=== PATIENT | male | born 1995 | race African-American/Black ===

== ENCOUNTER 2018-12-07 10:43 | Emergency (ER) | payer MEDICAID ==
[~2018-12-07] VITALS: Ht 185.4 cm; Wt 80.3 kg
--- OUTSIDE RECORDS SUMMARY | 2018-12-07 11:07 | XMS REPORT | Continuity of Care Document ---
Demographics Preferred Language Unknown Marital Status Unknown Sabianist Affiliation Unknown Race Unknown Ethnic Group Unknown Author Author Former[facility] [place] Address Unknown Phone Unavailable Allergies There is no data. Medications There is no data. Problems There is no data. Procedures There is no data. Results There is no data. Encounters ACCT No. Visit Date/Time Discharge Status Pt. Type Provider Facility Loc./Unit Complaint [id number] 01/30/2013 14:40:44 RECURRING
[2018-12-07] MEDS ORDERED: CARV3.122 PO (11:58)
[2018-12-07] MEDS ORDERED: KETOROLAC 30 MG/ML VIAL IVP ONE (12:45)
[2018-12-07 13:05] LABS: BASOPHILS # (AUTO) 0.1 10^3/uL (0.0-0.1); BASOPHILS % (AUTO) 1 % (0-10); EOSINOPHILS # (AUTO) 0.2 10^3/uL (0.0-0.3); EOSINOPHILS % (AUTO) 3 % (0-10); HEMATOCRIT 50 % (40-54); HEMOGLOBIN 17.2 G/DL (13.3-17.7); LYMPHOCYTES # (AUTO) 1.9 X 10^3 (1.0-4.0); LYMPHOCYTES % (AUTO) 39 % (12-44); MEAN CORPUSCULAR HEMOGLOBIN 28 PG (25-34); MEAN CORPUSCULAR HGB CONC 34 G/DL (32-36); MEAN CORPUSCULAR VOLUME 82 FL (80-99); MEAN PLATELET VOLUME 10.3 FL (7.4-10.4); MONOCYTES # (AUTO) 0.8 X 10^3 (0.0-1.0); MONOCYTES % (AUTO) 16 % (0-12); NEUTROPHILS % (AUTO) 41 % (42-75); PLATELET COUNT 257 10^3/uL (130-400); RED BLOOD COUNT 6.12 10^6/uL (4.35-5.85); RED CELL DISTRIBUTION WIDTH 13.3 % (10.0-14.5); WHITE BLOOD COUNT 4.9 10^3/uL (4.3-11.0)
[2018-12-07 13:30] LABS: ERYTHROCYTE SEDIMENTATION RATE 1 MM/HR (0-15)
[2018-12-07 13:31] LABS: ALANINE AMINOTRANSFERASE 13 U/L (0-55); ALBUMIN 4.8 GM/DL (3.2-4.5); ALKALINE PHOSPHATASE 88 U/L (40-136); BUN/CREATININE RATIO 11; CALCIUM 10.1 MG/DL (8.5-10.1); CARBON DIOXIDE 26 MMOL/L (21-32); CHLORIDE 101 MMOL/L (98-107); CREATININE SERUM 1.25 MG/DL (0.60-1.30); GFR ESTIMATED > 60; GLUCOSE 84 MG/DL (70-105); POTASSIUM 3.9 MMOL/L (3.6-5.0); SODIUM 139 MMOL/L (135-145)
--- NOTE | 2018-12-07 13:33 | Diagnostic Imaging Report ---
Indication: Left shoulder pain AP, oblique and transscapular views of the left shoulder are obtained. FINDINGS: No acute fracture or dislocation is identified. No abnormal lytic or sclerotic focus is seen, and there is no radiopaque foreign body. IMPRESSION: No acute abnormality. Dictated by: Dictated on workstation # [id number]
--- NOTE | 2018-12-07 13:41 | Diagnostic Imaging Report ---
INDICATION: Sternal pain and palpitation. TECHNIQUE: PA and lateral views of the chest were obtained. COMPARISON: No previous study is available for comparison at this time. FINDINGS: The heart size and pulmonary vasculature are within normal limits, and the lungs are clear bilaterally. Monitoring leads overlie the chest. IMPRESSION: Unremarkable chest. Dictated by: Dictated on workstation # [id number]
--- NOTE | 2018-12-07 13:57 | ED Chest Pain ---
General Chief Complaint: Chest Pain Stated Complaint: PALPITATIONS Nursing Triage Note: PT. STATES HE IS NOW HAVING STERNAL PAIN. WHEN HE FIRST PRESENTED TO ER, ONLY C/O WAS PALPITATIONS, INCREASED HR. PT. HAS HALTER MONITOR THAT WAS PLACED THIS AM. PT. WAS DENTON TO ER BY STAFF THAT HAD PLACED THE HALTER MONITOR. PT. STATES HE WAS IN [place] ER WITH SAME C/O BUT NO TREATMENT WAS DONE. Nursing Sepsis Screen: No Definite Risk Source: patient, family Exam Limitations: no limitations History of Present Illness Date Seen by Provider: Dec 07, 2018 Time Seen by Provider: 13:52 Initial Comments This 22-year-old white male presents with a history of chest pain and palpitations. The patient was here for a Holter monitor. He began to complain of chest pain and palpitations precipitating his presentation in the emergency department. The patient has no known heart disease. He's had no associated fever, chill, shortness of breath, diaphoresis, nausea or vomiting. The patient has been able to play competitive basketball without any episodes of chest discomfort in the past. There is no significant history of heart disease in the family. Patient denies nicotine, significant alcohol, or recreational drugs. Allergies and Home Medications Allergies Coded Allergies: No Known Drug Allergies (Unverified , 12/07/18) Home Medications Carvedilol 3.125 Mg Tablet, 3.125 MG PO BID, (Reported) Patient Home Medication List Home Medication List Reviewed: Yes Review of Systems Review of Systems Constitutional: No chills, No fever, No weakness EENTM: No Blurred Vision, No Ear Pain Respiratory: Denies Cough, Denies Shortness of Air Cardiovascular: See HPI, Chest Pain, Palpitations Gastrointestinal: Denies Abdomen Distended, Denies Diarrhea, Denies Nausea, Denies Vomiting Genitourinary: Denies Frequency, Denies Pain Musculoskeletal: No back pain; joint pain (patient is complaining of left- sided chest pain associated with pain in the left shoulder. Movement of the left shoulder or); No joint swelling Skin: No change in color (patient is complaining of left-sided chest pain associated with pain in the left shoulder. Movement of the left shoulder or pressure to the anterior chest wall and left reproduces the patient's discomfort.), No rash Psychiatric/Neurological: No Symptoms Reported Endocrine: No Symptoms Reported Hematologic/Lymphatic: No Symptoms Reported Past Hvlldtl-Wjawkb-Xfbkxs Hx Past Med/Social Hx: Reviewed Nursing Past Med/Soc Hx Patient Social History Alcohol Use: Denies Use Recreational Drug Use: No Smoking Status: Former Smoker Type Used: Cigarettes Former Smoker, Quit: Nov 20, 2015 Recent Foreign Travel: No Contact w/Someone Who Travel: No Recent Infectious Disease Expo: No Physical Abuse: No Sexual Abuse: No Past Medical History Surgeries: No Respiratory: No Cardiac: Yes (HEART MONITOR PLACED THIS AM) Hypertension Neurological: No Genitourinary: No Gastrointestinal: No Musculoskeletal: No Endocrine: No HEENT: No Cancer: No Psychosocial: No Integumentary: No Physical Exam Vital Signs Vital Signs - First Documented 12/07/18 11:47 Temp 98.1 B/P (MAP) 148/106 (120) O2 Delivery Room Air Capillary Refill : Less Than 3 Seconds Height, Weight, BMI Height: 6'1.00" Weight: 177lbs. oz. 80.795709if; BMI Method:Stated General Appearance: No Apparent Distress, WD/WN HEENT: TMs Normal, Normal ENT Inspection Neck: Full Range of Motion, Normal Inspection, Supple Respiratory: Lungs Clear Cardiovascular: Regular Rate, Rhythm Gastrointestinal: Normal Bowel Sounds, Non Tender, Soft Extremity: Other (there is tenderness to palpation over the left shoulder over the insertion of the rotator cuff.) Neurologic/Psychiatric: Alert, Oriented x3, No Motor/Sensory Deficits Skin: Normal Color, Warm/Dry Progress/Results/Core Measures Results/Orders Lab Results Laboratory Tests Test 12/07/18 12:03 Range/Units White Blood Count 4.9 4.3-11.0 10^3/uL Red Blood Count 6.12 H 4.35-5.85 10^6/uL Hemoglobin 17.2 13.3-17.7 G/DL Hematocrit 50 40-54 % Mean Corpuscular Volume 82 80-99 FL Mean Corpuscular Hemoglobin 28 25-34 PG Mean Corpuscular Hemoglobin Concent 34 32-36 G/DL Red Cell Distribution Width 13.3 10.0-14.5 % Platelet Count 257 130-400 10^3/uL Mean Platelet Volume 10.3 7.4-10.4 FL Neutrophils (%) (Auto) 41 L 42-75 % Lymphocytes (%) (Auto) 39 12-44 % Monocytes (%) (Auto) 16 H 0-12 % Eosinophils (%) (Auto) 3 0-10 % Basophils (%) (Auto) 1 0-10 % Neutrophils # (Auto) 2.0 1.8-7.8 X 10^3 Lymphocytes # (Auto) 1.9 1.0-4.0 X 10^3 Monocytes # (Auto) 0.8 0.0-1.0 X 10^3 Eosinophils # (Auto) 0.2 0.0-0.3 10^3/uL Basophils # (Auto) 0.1 0.0-0.1 10^3/uL Erythrocyte Sedimentation Rate 1 0-15 MM/HR Sodium Level 139 135-145 MMOL/L Potassium Level 3.9 3.6-5.0 MMOL/L Chloride Level 101 98-107 MMOL/L Carbon Dioxide Level 26 21-32 MMOL/L Anion Gap 12 5-14 MMOL/L Blood Urea Nitrogen 14 7-18 MG/DL Creatinine 1.25 0.60-1.30 MG/DL Estimat Glomerular Filtration Rate > 60 BUN/Creatinine Ratio 11 Glucose Level 84 70-105 MG/DL Calcium Level 10.1 8.5-10.1 MG/DL Corrected Calcium 8.5-10.1 MG/DL Total Bilirubin 1.0 0.1-1.0 MG/DL Aspartate Amino Transf (AST/SGOT) 19 5-34 U/L Alanine Aminotransferase (ALT/SGPT) 13 0-55 U/L Alkaline Phosphatase 88 40-136 U/L Troponin I < 0.028 <0.028 NG/ML Total Protein 8.0 6.4-8.2 GM/DL Albumin 4.8 H 3.2-4.5 GM/DL My Orders Orders - LUNA NOBLE MD Chest Pa/Lat (2 View) (12/07/18 12:44) Erythrocyte Sedimentation Rate (12/07/18 12:44) Troponin I (12/07/18 12:44) Cbc With Automated Diff (12/07/18 12:44) Comprehensive Metabolic Panel (12/07/18 12:44) Ketorolac Injection (Toradol Injection) (12/07/18 12:45) Ekg Tracing (12/07/18 12:49) Shoulder, Left, 3 Views (12/07/18 12:44) Medications Given in ED Current Medications Medications Dose Ordered Sig/Mayra Route Start Time Stop Time Status Last Admin Dose Admin Ketorolac Tromethamine 30 mg ONCE ONCE IVP 12/07/18 12:45 12/07/18 12:47 DC 12/07/18 13:03 30 MG Vital Signs/I&O 12/07/18 11:47 Temp 98.1 B/P (MAP) 148/106 (120) O2 Delivery Room Air Blood Pressure Mean: 120 Progress Progress Note : Time: 13:56 Progress Note Patient's laboratory and radiographic evaluation were unremarkable. After discussion with the patient 30 mg Toradol IV was given on a trial basis to see if we can relieve his chest pain. Patient received a significant amount of pain relief with the IV Toradol. IM and reassured the patient that I thought his chest pain was likely to be noncardiac in origin. I recommend close follow-up after submission of his Holter monitor. I gave the patient small amount of oral Toradol should he have any continued chest pain. Departure Impression Primary Impression: Chest pain Qualified Codes: R07.82 - Intercostal pain Disposition: 01 HOME, SELF-CARE Condition: Improved Departure-Patient Inst. Decision time for Depature: 13:58 Referrals: BANG GILL MD (PCP/Family) Primary Care Physician Patient Instructions: Chest Pain That Is Not Caused by the Heart (DC) Add. Discharge Instructions: Toradol for pain if needed. Close follow-up after your Holter monitor. Return if any problems or questions. All discharge instructions reviewed with patient and/or family. Voiced understanding. LUNA NOBLE MD Dec 07, 2018 13:57
[2018-12-07 14:21] VITALS: BP 131/84
== END 2018-12-07 14:18 | disposition home or self-care (01) ==
LOC: EDUNIT# 10:43 → ER 10:44
DX: R07.9 Chest pain, unspecified (principal); I10 Essential (primary) hypertension; Z87.891 Personal history of nicotine dependence
CPT/HCPCS: 36415; 71046; 73030; 80053; 84484; 85025; 85652; 93005

== ENCOUNTER → 2018-12-07 | Outpatient (CLI) | payer MEDICAID ==
[~2018-12-07] MED LIST: CARV3.122 PO
== END ==
LOC: CARD 10:22
PROVIDERS: ATTEND Family Medicine
DX: R00.2 Palpitations (principal); R07.9 Chest pain, unspecified
CPT/HCPCS: 93225; 93226

== ENCOUNTER 2018-12-13 18:51 | Emergency (ER) | payer MEDICAID | END 2018-12-13 20:40 | disposition home or self-care (01) | LOC: ER 18:51 ==

== ENCOUNTER 2018-12-21 21:15 | Emergency (ER) | payer MEDICAID ==
[~2018-12-21] VITALS: Ht 182.9 cm; Wt 77.6 kg
[~2018-12-21 21:15] MED LIST changes: +METH-313 PO; +NAPR-1071 PO
--- OUTSIDE RECORDS SUMMARY | 2018-12-21 21:20 | XMS REPORT | Continuity of Care Document ---
Demographics Preferred Language Unknown Marital Status Unknown Jew Affiliation Unknown Race Unknown Ethnic Group Unknown Author Author [facility] Address Unknown Phone Unavailable Allergies Active Description Code Type Severity Reaction Onset Reported/Identified Relationship to Patient Clinical Status Yes NO KNOWN DRUG ALLERGIES UNKNOWN NO KNOWN DRUG ALLERG Yes No Known Drug Allergies [id number] Drug Allergy Unknown N/A 12/07/2018 Medications Medication Packaging Start Date Stop Date Route Dosage Sig ORPHENADRINE INJ 60 MG/2CC (NORFLEX) MG 2018 2018 ONCE&1557 KETOROLAC VIAL INJ 60 MG/2CC (TORADOL VIAL) MG 2018 2018 ONCE&1557 ASPIRIN 81MG CHEWABLE TAB 81 MG (BABY ASPIRIN) MG 2018 2018 ONCE&1800 Problems Date Dx Coded Attending Type Code Diagnosis Diagnosed By 12/10/2018 AIDE GROVER, LUNA Kincaid Ot I10 ESSENTIAL (PRIMARY) HYPERTENSION 12/10/2018 LUNA NOBLE MD Ot R07.9 CHEST PAIN, UNSPECIFIED 12/10/2018 LUNA NOBLE MD Ot Z87.891 PERSONAL HISTORY OF NICOTINE DEPENDENCE 12/10/2018 Ot R00.2 PALPITATIONS 12/10/2018 Ot R07.9 CHEST PAIN, UNSPECIFIED 2018 Brokob, Amber W 461.9 ACUTE SINUSITIS, UNSPECIFIED 2018 Brokob, Amber W 785.1 PALPITATIONS 2018 Brokob, Amber W 786.5 CHEST PAIN 2018 Brokob, Amber W 794.31 NONSPECIFIC ABNORMAL ELECTROCARDIOGRAM [ECG] [EKG] 2018 Brokob, Amber W 848.8 OTHER SPECIFIED SITES OF SPRAINS AND STRAINS 2018 Brokob, Amber W J01.90 ACUTE SINUSITIS, UNSPECIFIED 2018 Brokob, Amber W R00.2 PALPITATIONS 2018 Brokob, Amber W R07.89 OTHER CHEST PAIN 2018 Brokob, Amber W R94.31 ABNORMAL ELECTROCARDIOGRAM [ECG] [EKG] 2018 Amber Fernandez W S29.012A STRAIN OF MUSCLE AND TENDON OF BACK WALL OF THORAX, INIT 12/17/2018 LEIGHTON THOMAS APRN Ot I10 ESSENTIAL (PRIMARY) HYPERTENSION 12/17/2018 LEIGHTON THOMAS APRN Ot R07.89 OTHER CHEST PAIN 12/17/2018 LEIGHTON THOMAS APRN Ot R94.31 ABNORMAL ELECTROCARDIOGRAM [ECG] [EKG] 12/17/2018 LEIGHTON THOMAS APRN Ot Z87.891 PERSONAL HISTORY OF NICOTINE DEPENDENCE 12/19/2018 Ot R00.2 PALPITATIONS 12/19/2018 Ot R07.9 CHEST PAIN, UNSPECIFIED Procedures There is no data. Results Test Result Range Complete blood count (CBC) with automated white blood cell (WBC) differential - 12/07/18 12:03 Blood leukocytes automated count (number/volume) 4.9 10*3/uL 4.3-11.0 Blood erythrocytes automated count (number/volume) 6.12 10*6/uL 4.35-5.85 Venous blood hemoglobin measurement (mass/volume) 17.2 g/dL 13.3-17.7 Blood hematocrit (volume fraction) 50 % 40-54 Automated erythrocyte mean corpuscular volume 82 [foz_us] 80-99 Automated erythrocyte mean corpuscular hemoglobin (mass per erythrocyte) 28 pg 25-34 Automated erythrocyte mean corpuscular hemoglobin concentration measurement ( mass/volume) 34 g/dL 32-36 Automated erythrocyte distribution width ratio 13.3 % 10.0-14.5 Automated blood platelet count (count/volume) 257 10*3/uL 130-400 Automated blood platelet mean volume measurement 10.3 [foz_us] 7.4-10.4 Automated blood neutrophils/100 leukocytes 41 % 42-75 Automated blood lymphocytes/100 leukocytes 39 % 12-44 Blood monocytes/100 leukocytes 16 % 0-12 Automated blood eosinophils/100 leukocytes 3 % 0-10 Automated blood basophils/100 leukocytes 1 % 0-10 Blood neutrophils automated count (number/volume) 2.0 10*3 1.8-7.8 Blood lymphocytes automated count (number/volume) 1.9 10*3 1.0-4.0 Blood monocytes automated count (number/volume) 0.8 10*3 0.0-1.0 Automated eosinophil count 0.2 10*3/uL 0.0-0.3 Automated blood basophil count (count/volume) 0.1 10*3/uL 0.0-0.1 Erythrocyte sedimentation rate by westergren method - 12/07/18 12:03 Erythrocyte sedimentation rate by westergren method 1 mm 0-15 Comprehensive metabolic panel - 12/07/18 12:03 Serum or plasma sodium measurement (moles/volume) 139 mmol/L 135-145 Serum or plasma potassium measurement (moles/volume) 3.9 mmol/L 3.6-5.0 Serum or plasma chloride measurement (moles/volume) 101 mmol/L 98-107 Carbon dioxide 26 mmol/L 21-32 Serum or plasma anion gap determination (moles/volume) 12 mmol/L 5-14 Serum or plasma urea nitrogen measurement (mass/volume) 14 mg/dL 7-18 Serum or plasma creatinine measurement (mass/volume) 1.25 mg/dL 0.60-1.30 Serum or plasma urea nitrogen/creatinine mass ratio 11 NRG Serum or plasma creatinine measurement with calculation of estimated glomerular filtration rate > NRG Serum or plasma glucose measurement (mass/volume) 84 mg/dL 70-105 Serum or plasma calcium measurement (mass/volume) 10.1 mg/dL 8.5-10.1 Serum or plasma total bilirubin measurement (mass/volume) 1.0 mg/dL 0.1-1.0 Serum or plasma alkaline phosphatase measurement (enzymatic activity/volume) 88 U/L 40-136 Serum or plasma aspartate aminotransferase measurement (enzymatic activity/ volume) 19 U/L 5-34 Serum or plasma alanine aminotransferase measurement (enzymatic activity/volume ) 13 U/L 0-55 Serum or plasma protein measurement (mass/volume) 8.0 g/dL 6.4-8.2 Serum or plasma albumin measurement (mass/volume) 4.8 g/dL 3.2-4.5 Serum or plasma troponin i.cardiac measurement (mass/volume) - 12/07/18 12:03 Serum or plasma troponin i.cardiac measurement (mass/volume) < ng/ mL <0.028 Thyroid Stimulating Hormone - 12/13/18 16:35 TSH 0.92 mIU/mL 0.32-5.00 Serum or plasma troponin i.cardiac measurement (mass/volume) - 12/13/18 19:45 Serum or plasma troponin i.cardiac measurement (mass/volume) < ng/ mL <0.028 Fibrin D-dimer FEU measurement in platelet poor plasma (mass/volume) - 19:45 Fibrin D-dimer FEU measurement in platelet poor plasma (mass/volume) 0.22 ug/mL 0.00-0.49 Encounters ACCT No. Visit Date/Time Discharge Status Pt. Type Provider Facility Loc./Unit Complaint [id number] 01/30/2013 14:40:44 RECURRING [id number] 2018 15:35:00 2018 18:25:00 DIS Outpatient Charmaineanna Amber [id number] 2018 15:57:35 Document Registration [id number] 2018 18:51:00 2018 20:40:00 DIS Outpatient LEIGHTON THOMAS APRN [facility] ER CP [id number] 12/07/2018 10:44:00 12/07/2018 14:18:00 DIS Outpatient AIDE GROVER, LUNA Kincaid [facility] ER PALPITATIONS [id number] 12/21/2018 21:16:00 ACT Emergency ISAAC DO, NEHAL K [facility] ER HEART RACING/L SIDE PAIN [id number] 12/19/2018 10:45:00 PEN Preadesperanza SETHI MD FACC, RAMAN DHILLON CCDS [facility] RAD CHEST DISCOMFORT [id number] 12/07/2018 11:56:00 Document Registration [id number] 12/07/2018 11:56:00 Document Registration
--- NOTE | 2018-12-21 21:39 | NUR ---
NOTIFIED KEYUR SEGURA THAT PT ST HEART IS RACING FASTER.
[2018-12-21 22:15] VITALS: BP 150/99
[2018-12-21] MEDS ORDERED: ASPIRIN 81 MG CHEW (CHILDREN'S ASA) PO ONE (22:30)
[2018-12-21 22:33] LABS: BASOPHILS # (AUTO) 0.1 10^3/uL (0.0-0.1); BASOPHILS % (AUTO) 2 % (0-10); EOSINOPHILS # (AUTO) 0.2 10^3/uL (0.0-0.3); EOSINOPHILS % (AUTO) 4 % (0-10); HEMATOCRIT 45 % (40-54); HEMOGLOBIN 15.7 G/DL (13.3-17.7); LYMPHOCYTES # (AUTO) 2.5 X 10^3 (1.0-4.0); LYMPHOCYTES % (AUTO) 46 % (12-44); MEAN CORPUSCULAR HEMOGLOBIN 29 PG (25-34); MEAN CORPUSCULAR HGB CONC 35 G/DL (32-36); MEAN CORPUSCULAR VOLUME 82 FL (80-99); MEAN PLATELET VOLUME 9.9 FL (7.4-10.4); MONOCYTES % (AUTO) 19 % (0-12); NEUTROPHILS # (AUTO) 1.7 X 10^3 (1.8-7.8); NEUTROPHILS % (AUTO) 30 % (42-75); PLATELET COUNT 278 10^3/uL (130-400); WHITE BLOOD COUNT 5.4 10^3/uL (4.3-11.0)
[2018-12-21 22:42] LABS: INR 1.1 (0.8-1.4); PROTHROMBIN TIME PATIENT 13.7 SEC (12.2-14.7)
[2018-12-21 22:44] LABS: BILIRUBIN,URINE NEGATIVE (NEGATIVE); CLARITY,URINE VERY CLOUDY; COLOR,URINE YELLOW; GLUCOSE, URINE (UA) NEGATIVE (NEGATIVE); KETONES,URINE 3+ (NEGATIVE); LEUKOCYTE ESTERASE ,URINE 1+ (NEGATIVE); NITRITE,URINE NEGATIVE (NEGATIVE); PH,URINE 7 (5-9); PROTEIN,URINE 1+ (NEGATIVE); UROBILINOGEN,URINE NORMAL (NORMAL)
--- NOTE | 2018-12-21 22:45 | ED General ---
General Stated Complaint: HEART RACING/L SIDE PAIN Allergies and Home Medications Allergies Coded Allergies: No Known Drug Allergies (Unverified , 12/07/18) Home Medications Carvedilol 3.125 Mg Tablet, 3.125 MG PO BID, (Reported) Methocarbamol 750 Mg Tablet, 750 MG PO Q4H PRN for PAIN-MODERATE Prescribed by: LEIGHTON THOMAS on 12/13/182018 Naproxen 500 Mg Tablet, 500 MG PO BID PRN for PAIN-MODERATE TO SEVERE Prescribed by: LEIGHTON THOMAS on 12/13/182018 Past Lxycsdi-Cvrmjo-Vhwmqn Hx Patient Social History Type Used: Cigarettes Former Smoker, Quit: Nov 20, 2015 2nd Hand Smoke Exposure: No Recent Foreign Travel: No Contact w/Someone Who Travel: No Recent Hopitalizations: No Seasonal Allergies Seasonal Allergies: No Past Medical History Surgeries: No Respiratory: No Cardiac: Yes (HEART MONITOR PLACED THIS AM) Hypertension Neurological: No Genitourinary: No Gastrointestinal: No Musculoskeletal: No Endocrine: No HEENT: No Cancer: No Psychosocial: No Integumentary: No Physical Exam Vital Signs Vital Signs - First Documented 12/21/18 22:15 Temp 95.6 Pulse 77 Resp 17 B/P (MAP) 150/99 (116) Pulse Ox 97 O2 Delivery Room Air Capillary Refill : Height, Weight, BMI Height: 6'1.00" Weight: 170lbs. oz. 77.777145gp; BMI Method:Stated Progress/Results/Core Measures Suspected Sepsis SIRS Temperature: Pulse: Respiratory Rate: Laboratory Tests 12/21/18 22:23: White Blood Count 5.4 Blood Pressure / Mean: Laboratory Tests 12/21/18 22:23: Creatinine 1.20, INR Comment 1.1, Platelet Count 278, Total Bilirubin 0.8 Results/Orders Lab Results Laboratory Tests Test 12/21/18 22:23 12/21/18 22:36 Range/Units White Blood Count 5.4 4.3-11.0 10^3/uL Red Blood Count 5.50 4.35-5.85 10^6/uL Hemoglobin 15.7 13.3-17.7 G/DL Hematocrit 45 40-54 % Mean Corpuscular Volume 82 80-99 FL Mean Corpuscular Hemoglobin 29 25-34 PG Mean Corpuscular Hemoglobin Concent 35 32-36 G/DL Red Cell Distribution Width 13.0 10.0-14.5 % Platelet Count 278 130-400 10^3/uL Mean Platelet Volume 9.9 7.4-10.4 FL Neutrophils (%) (Auto) 30 L 42-75 % Lymphocytes (%) (Auto) 46 H 12-44 % Monocytes (%) (Auto) 19 H 0-12 % Eosinophils (%) (Auto) 4 0-10 % Basophils (%) (Auto) 2 0-10 % Neutrophils # (Auto) 1.7 L 1.8-7.8 X 10^3 Lymphocytes # (Auto) 2.5 1.0-4.0 X 10^3 Monocytes # (Auto) 1.0 0.0-1.0 X 10^3 Eosinophils # (Auto) 0.2 0.0-0.3 10^3/uL Basophils # (Auto) 0.1 0.0-0.1 10^3/uL Neutrophils % (Manual) 29 % Lymphocytes % (Manual) 28 % Monocytes % (Manual) 25 % Eosinophils % (Manual) 2 % Reactive Lymphocytes 16 % Blood Morphology Comment NORMAL Prothrombin Time 13.7 12.2-14.7 SEC INR Comment 1.1 0.8-1.4 Activated Partial Thromboplast Time 32 24-35 SEC Sodium Level 140 135-145 MMOL/L Potassium Level 3.7 3.6-5.0 MMOL/L Chloride Level 103 98-107 MMOL/L Carbon Dioxide Level 24 21-32 MMOL/L Anion Gap 13 5-14 MMOL/L Blood Urea Nitrogen 18 7-18 MG/DL Creatinine 1.20 0.60-1.30 MG/DL Estimat Glomerular Filtration Rate > 60 BUN/Creatinine Ratio 15 Glucose Level 89 70-105 MG/DL Calcium Level 9.9 8.5-10.1 MG/DL Corrected Calcium 9.5 8.5-10.1 MG/DL Magnesium Level 2.2 1.8-2.4 MG/DL Total Bilirubin 0.8 0.1-1.0 MG/DL Aspartate Amino Transf (AST/SGOT) 20 5-34 U/L Alanine Aminotransferase (ALT/SGPT) 20 0-55 U/L Alkaline Phosphatase 65 40-136 U/L Troponin I < 0.028 <0.028 NG/ML B-Type Natriuretic Peptide < 10.0 <100.0 PG/ML Total Protein 7.1 6.4-8.2 GM/DL Albumin 4.5 3.2-4.5 GM/DL Amylase Level 68 25-125 U/L Lipase 13 8-78 U/L TSH [place] Testing 2.56 0.35-4.94 UIU/ML Serum Alcohol < 10 <10 MG/DL Urine Color YELLOW Urine Clarity VERY CLOUDY H Urine pH 7 5-9 Urine Specific [place] 1.015 L 1.016-1.022 Urine Protein 1+ H NEGATIVE Urine Glucose (UA) NEGATIVE NEGATIVE Urine Ketones 3+ H NEGATIVE Urine Nitrite NEGATIVE NEGATIVE Urine Bilirubin NEGATIVE NEGATIVE Urine Urobilinogen NORMAL NORMAL MG/DL Urine Leukocyte Esterase 1+ H NEGATIVE Urine RBC (Auto) NEGATIVE NEGATIVE Urine RBC NONE /HPF Urine WBC 0-2 /HPF Urine Crystals PRESENT H /LPF Urine Amorphous Sediment LARGE ASHLEY URATES H /LPF Urine Bacteria NONE /HPF Urine Casts NONE /LPF Urine Mucus NEGATIVE /LPF Urine Culture Indicated NO Urine Opiates Screen NEGATIVE NEGATIVE Urine Oxycodone Screen NEGATIVE NEGATIVE Urine Methadone Screen NEGATIVE NEGATIVE Urine Propoxyphene Screen NEGATIVE NEGATIVE Urine Barbiturates Screen NEGATIVE NEGATIVE Ur Tricyclic Antidepressants Screen NEGATIVE NEGATIVE Urine Phencyclidine Screen NEGATIVE NEGATIVE Urine Amphetamines Screen NEGATIVE NEGATIVE Urine Methamphetamines Screen NEGATIVE NEGATIVE Urine Benzodiazepines Screen NEGATIVE NEGATIVE Urine Cocaine Screen NEGATIVE NEGATIVE Urine Cannabinoids Screen NEGATIVE NEGATIVE My Orders Orders - NEHAL GRAY DO Saline Lock/Iv-Start (12/21/18 22:03) Ekg Tracing (12/21/18 22:03) Monitor-Rhythm Ecg Trace Only (12/21/18 22:03) Alcohol (12/21/18 22:03) BNP (12/21/18 22:03) Cbc With Automated Diff (12/21/18 22:03) Comprehensive Metabolic Panel (12/21/18 22:03) Drug Screen Stat (Urine) (12/21/18 22:03) Magnesium (12/21/18 22:03) Protime With Inr (12/21/18 22:03) Partial Thromboplastin Time (12/21/18 22:03) Thyroid Analyzer (12/21/18 22:03) Troponin I (12/21/18 22:03) Ua Culture If Indicated (12/21/18 22:03) Amylase (12/21/18 22:03) Lipase (12/21/18 22:03) Aspirin Chewable Tablet (Baby Aspirin Ch (12/21/18 22:30) Manual Differential (12/21/18 22:23) Ct Angio Chest W (12/21/18 23:18) Ct Neck (Soft Tissue) W (12/21/18 23:18) Medications Given in ED Current Medications Medications Dose Ordered Sig/Mayra Route Start Time Stop Time Status Last Admin Dose Admin Aspirin 324 mg ONCE ONCE PO 12/21/18 22:30 12/21/18 22:31 DC 12/21/18 22:25 324 MG Vital Signs/I&O 12/21/18 22:15 Temp 95.6 Pulse 77 Resp 17 B/P (MAP) 150/99 (116) Pulse Ox 97 O2 Delivery Room Air Capillary Refill : Progress Note : Progress Note PT REFUSES CXR 2342--AFTER INITIALLY AGREEING TO CT ANGIOGRAM, ONCE IN CT ROOM, PT NOW REFUSING AMA PAPERS SIGNED Departure Departure-Patient Inst. Referrals: BANG GILL MD (PCP/Family) Primary Care Physician NEHAL GRAY DO Dec 21, 2018 22:45
[2018-12-21 22:52] LABS: ALANINE AMINOTRANSFERASE 20 U/L (0-55); ALBUMIN 4.5 GM/DL (3.2-4.5); ALKALINE PHOSPHATASE 65 U/L (40-136); AMYLASE 68 U/L (25-125); BILIRUBIN,TOTAL 0.8 MG/DL (0.1-1.0); BUN/CREATININE RATIO 15; CALCIUM 9.9 MG/DL (8.5-10.1); CARBON DIOXIDE 24 MMOL/L (21-32); CHLORIDE 103 MMOL/L (98-107); GFR ESTIMATED > 60; GLUCOSE 89 MG/DL (70-105); LIPASE 13 U/L (8-78); MAGNESIUM 2.2 MG/DL (1.8-2.4); POTASSIUM 3.7 MMOL/L (3.6-5.0); SODIUM 140 MMOL/L (135-145); TOTAL PROTEIN 7.1 GM/DL (6.4-8.2)
[2018-12-21 22:55] LABS: EOSINOPHILS % (MANUAL) 2 %; LYMPHOCYTES % (MANUAL) 28 %; MONOCYTES % (MANUAL) 25 %; NEUTROPHILS % (MANUAL) 29 %; RBC MORPH NORMAL; REACTIVE LYMPHOCYTES 16 %
[2018-12-21 23:00] LABS: AMORPHOUS SEDIMENT,UR LARGE AMOR URATES /LPF; WBC,URINE 0-2 /HPF
[2018-12-21 23:01] LABS: AMPHETAMINE SCREEN, URINE NEGATIVE (NEGATIVE); BARBITURATE SCREEN URINE NEGATIVE (NEGATIVE); BENZODIAZEPINES SCREEN URINE NEGATIVE (NEGATIVE); CANNABINOID SCREEN, URINE NEGATIVE (NEGATIVE); COCAINE SCREEN URINE NEGATIVE (NEGATIVE); METHADONE STAT NEGATIVE (NEGATIVE); METHAMPHETAMINE SCREEN URINE S NEGATIVE (NEGATIVE); OPIATE SCREEN URINE NEGATIVE (NEGATIVE); OXYCODONE STAT NEGATIVE (NEGATIVE); PROPOXYPHENE STAT NEGATIVE (NEGATIVE); TRICYCLIC ANTIDEPRESSANTS SCRE NEGATIVE (NEGATIVE)
[2018-12-21 23:12] LABS: TSH (THYROID ANALYZER) 2.56 UIU/ML (0.35-4.94)
--- NOTE | 2018-12-21 23:51 | NUR ---
Pt refused xray and CT. Dr. Buitrago requested pt sign AMA and follow up with PCP. Pt signed AMA at this time, IV removed and pt was informed that he will need to follow up with PCP. Pt stated he has seen Dr. Vu 3 times for this. He was informed he is able to see a different PCP if he would like.
== END 2018-12-21 23:51 | disposition left against medical advice (07) ==
LOC: EDUNIT# 21:15 → ER 21:16
DX: R00.0 Tachycardia, unspecified (principal); I10 Essential (primary) hypertension; Z87.891 Personal history of nicotine dependence
CPT/HCPCS: 36415; 80053; 80306; 80320; 81000; 82150; 83690; 83735; 83880; 84443; 84484; 85007; 85027; 85610; 85730; 93041

== ENCOUNTER → 2018-12-28 | Outpatient (CLI) | payer MEDICAID | LOC: EDUNIT# 12-27 12:00 → CARD 09:23 | PROVIDERS: ATTEND Family Medicine | DX: R00.2 Palpitations (principal); R07.9 Chest pain, unspecified | CPT/HCPCS: 93306 ==

== ENCOUNTER 2019-01-07 12:36 | Emergency (ER) | payer MEDICAID ==
[~2019-01-07] VITALS: Ht 185.4 cm; Wt 74.8 kg
--- OUTSIDE RECORDS SUMMARY | 2019-01-07 12:41 | XMS REPORT | Continuity of Care Document ---
Demographics Preferred Language Unknown Marital Status Unknown Mormon Affiliation Unknown Race Unknown Ethnic Group Unknown Author Author [facility] Address Unknown Phone Unavailable Allergies Active Description Code Type Severity Reaction Onset Reported/Identified Relationship to Patient Clinical Status Yes NO KNOWN DRUG ALLERGIES UNKNOWN NO KNOWN DRUG ALLERG Yes No Known Drug Allergies [id number] Drug Allergy Unknown N/A 12/07/2018 Medications Medication Packaging Start Date Stop Date Route Dosage Sig ORPHENADRINE INJ 60 MG/2CC (NORFLEX) MG 2018 2018 ONCE&1557 KETOROLAC VIAL INJ 60 MG/2CC (TORADOL VIAL) MG 2018 2018 ONCE&1557 ASPIRIN 81MG CHEWABLE TAB 81 MG (BABY ASPIRIN) MG 2018 2018 ONCE&1800 Problems Date Dx Coded Attending Type Code Diagnosis Diagnosed By 12/07/2018 LUNA NOBLE MD Ot I10 ESSENTIAL (PRIMARY) HYPERTENSION 12/07/2018 LUNA NOBLE MD Ot R07.9 CHEST PAIN, UNSPECIFIED 12/07/2018 LUNA NOBLE MD Ot Z87.891 PERSONAL HISTORY OF NICOTINE DEPENDENCE 12/10/2018 LUNA NOBLE MD Ot I10 ESSENTIAL (PRIMARY) HYPERTENSION 12/10/2018 LUNA NOBLE MD Ot R07.9 CHEST PAIN, UNSPECIFIED 12/10/2018 LUNA NOBLE MD Ot Z87.891 PERSONAL HISTORY OF NICOTINE DEPENDENCE 12/10/2018 Ot R00.2 PALPITATIONS 12/10/2018 Ot R07.9 CHEST PAIN, UNSPECIFIED 2018 Brokob Amber W 461.9 ACUTE SINUSITIS, UNSPECIFIED 2018 Brokob Amber W 785.1 PALPITATIONS 2018 Brovishnub Amber W 786.5 CHEST PAIN 2018 Brovishnub Amber W 794.31 NONSPECIFIC ABNORMAL ELECTROCARDIOGRAM [ECG] [EKG] 2018 Jim Amber W 848.8 OTHER SPECIFIED SITES OF SPRAINS AND STRAINS 2018 Amber Fernandez W J01.90 ACUTE SINUSITIS, UNSPECIFIED 2018 Amber Fernandez W R00.2 PALPITATIONS 2018 Amber Fernandez W R07.89 OTHER CHEST PAIN 2018 Amber Fernandez W R94.31 ABNORMAL ELECTROCARDIOGRAM [ECG] [EKG] 2018 Amber Fernandez W S29.012A STRAIN OF MUSCLE AND TENDON OF BACK WALL OF THORAX, INIT 2018 LEIGHTON THOMAS APRN Ot I10 ESSENTIAL (PRIMARY) HYPERTENSION 2018 LEIGHTON THOMAS APRN Ot R07.89 OTHER CHEST PAIN 2018 LEIGHTON THOMAS APRN Ot R94.31 ABNORMAL ELECTROCARDIOGRAM [ECG] [EKG] 2018 LEIGHTON THOMAS APRN Ot Z87.891 PERSONAL HISTORY OF NICOTINE DEPENDENCE 12/17/2018 LEIGHTON THOMAS SYRUP MAKER Ot I10 ESSENTIAL (PRIMARY) HYPERTENSION 12/17/2018 LEIGHTON THOMAS APRN Ot R07.89 OTHER CHEST PAIN 12/17/2018 LEIGHTON THOMAS APRN Ot R94.31 ABNORMAL ELECTROCARDIOGRAM [ECG] [EKG] 12/17/2018 LEIGHTON THOMAS APRN Ot Z87.891 PERSONAL HISTORY OF NICOTINE DEPENDENCE 12/19/2018 Ot R00.2 PALPITATIONS 12/19/2018 Ot R07.9 CHEST PAIN, UNSPECIFIED 12/21/2018 ISAAC DO, NEHAL K Ot I10 ESSENTIAL (PRIMARY) HYPERTENSION 12/21/2018 ISAAC DO, NEHAL K Ot R00.0 TACHYCARDIA, UNSPECIFIED 12/21/2018 ISAAC DO, NEHAL K Ot Z87.891 PERSONAL HISTORY OF NICOTINE DEPENDENCE 12/24/2018 ISAAC DO, NEHAL K Ot I10 ESSENTIAL (PRIMARY) HYPERTENSION 12/24/2018 ISAAC DO, NEHAL K Ot R00.0 TACHYCARDIA, UNSPECIFIED 12/24/2018 ISAAC DO, NEHAL K Ot Z87.891 PERSONAL HISTORY OF NICOTINE DEPENDENCE 12/26/2018 Ot R00.2 PALPITATIONS 12/26/2018 Ot R07.9 CHEST PAIN, UNSPECIFIED 12/31/2018 BANG GILL MD Ot R00.2 PALPITATIONS 12/31/2018 BANG GILL MD Ot R07.9 CHEST PAIN, UNSPECIFIED Procedures There [...] platelet poor plasma (mass/volume) 0.22 ug/mL 0.00-0.49 Complete blood count (CBC) with automated white blood cell (WBC) differential - 12/21/18 22:23 Blood leukocytes automated count (number/volume) 5.4 10*3/uL 4.3-11.0 Blood erythrocytes automated count (number/volume) 5.50 10*6/uL 4.35-5.85 Venous blood hemoglobin measurement (mass/volume) 15.7 g/dL 13.3-17.7 Blood hematocrit (volume fraction) 45 % 40-54 Automated erythrocyte mean corpuscular volume 82 [foz_us] 80-99 Automated erythrocyte mean corpuscular hemoglobin (mass per erythrocyte) 29 pg 25-34 Automated erythrocyte mean corpuscular hemoglobin concentration measurement ( mass/volume) 35 g/dL 32-36 Automated erythrocyte distribution width ratio 13.0 % 10.0-14.5 Automated blood platelet count (count/volume) 278 10*3/uL 130-400 Automated blood platelet mean volume measurement 9.9 [foz_us] 7.4-10.4 Automated blood neutrophils/100 leukocytes 30 % 42-75 Automated blood lymphocytes/100 leukocytes 46 % 12-44 Blood monocytes/100 leukocytes 19 % 0-12 Automated blood eosinophils/100 leukocytes 4 % 0-10 Automated blood basophils/100 leukocytes 2 % 0-10 Blood neutrophils automated count (number/volume) 1.7 10*3 1.8-7.8 Blood lymphocytes automated count (number/volume) 2.5 10*3 1.0-4.0 Blood monocytes automated count (number/volume) 1.0 10*3 0.0-1.0 Automated eosinophil count 0.2 10*3/uL 0.0-0.3 Automated blood basophil count (count/volume) 0.1 10*3/uL 0.0-0.1 Comprehensive metabolic panel - 12/21/18 22:23 Serum or plasma sodium measurement (moles/volume) 140 mmol/L 135-145 Serum or plasma potassium measurement (moles/volume) 3.7 mmol/L 3.6-5.0 Serum or plasma chloride measurement (moles/volume) 103 mmol/L 98-107 Carbon dioxide 24 mmol/L 21-32 Serum or plasma anion gap determination (moles/volume) 13 mmol/L 5-14 Serum or plasma urea nitrogen measurement (mass/volume) 18 mg/dL 7-18 Serum or plasma creatinine measurement (mass/volume) 1.20 mg/dL 0.60-1.30 Serum or plasma urea nitrogen/creatinine mass ratio 15 NRG Serum or plasma creatinine measurement with calculation of estimated glomerular filtration rate > NRG Serum or plasma glucose measurement (mass/volume) 89 mg/dL 70-105 Serum or plasma calcium measurement (mass/volume) 9.9 mg/dL 8.5-10.1 Serum or plasma total bilirubin measurement (mass/volume) 0.8 mg/dL 0.1-1.0 Serum or plasma alkaline phosphatase measurement (enzymatic activity/volume) 65 U/L 40-136 Serum or plasma aspartate aminotransferase measurement (enzymatic activity/ volume) 20 U/L 5-34 Serum or plasma alanine aminotransferase measurement (enzymatic activity/volume ) 20 U/L 0-55 Serum or plasma protein measurement (mass/volume) 7.1 g/dL 6.4-8.2 Serum or plasma albumin measurement (mass/volume) 4.5 g/dL 3.2-4.5 CALCIUM CORRECTED 9.5 mg/dL 8.5-10.1 Magnesium - 12/21/18 22:23 Magnesium 2.2 mg/dL 1.8-2.4 Serum or plasma troponin i.cardiac measurement (mass/volume) - 12/21/18 22:23 Serum or plasma troponin i.cardiac measurement (mass/volume) < ng/ mL <0.028 Serum or plasma amylase measurement (enzymatic activity/volume) - 12/21/18 22: 23 Serum or plasma amylase measurement (enzymatic activity/volume) 68 U /L 25-125 Lipase - 12/21/18 22:23 Lipase 13 U/L 8-78 Blood manual differential performed detection - 12/21/18 22:23 Blood monocytes/100 leukocytes 25 % NR Manual blood segmented neutrophils/100 leukocytes 29 % NRG Manual blood lymphocytes/100 leukocytes 28 % NR Manual eosinophils/100 leukocytes in nose 2 % NR Blood lymphocytes variant/100 leukocytes 16 % NR Blood erythrocyte morphology finding identification [facility] PT panel in platelet poor plasma by coagulation assay - 12/21/18 22:23 Prothrombin time (PT) in platelet poor plasma by coagulation assay 13.7 s 12.2-14.7 INR in platelet poor plasma or blood by coagulation assay 1.1 0.8-1.4 Activated partial thromboplastin time (aPTT) in platelet poor plasma bycoagulation assay - 12/21/18 22:23 Activated partial thromboplastin time (aPTT) in platelet poor plasma bycoagulation assay 32 s 24-35 Serum or plasma lithium measurement (moles/volume) - 12/21/18 22:23 BNP level < pg/mL <100.0 Serum or plasma thyrotropin measurement by detection limit <=0.05 miu/l (units/ volume) - 12/21/18 22:23 Serum or plasma thyrotropin measurement by detection limit <=0.05 miu/l (units/ volume) 2.56 u[iU]/mL 0.35-4.94 Serum or plasma ethanol measurement (mass/volume) - 12/21/18 22:23 Serum or plasma ethanol measurement (mass/volume) < mg/dL <10 Complete urinalysis with reflex to culture - 12/21/18 22:36 Urine color determination YELLOW NRG Urine clarity determination VERY CLOUDY NRG Urine pH measurement by test strip 7 5-9 Specific gravity of urine by test strip 1.015 1.016- 1.022 Urine protein assay by test strip, semi-quantitative 1+ NEGATIVE Urine glucose detection by automated test strip NEGATIVE NEGATIVE Erythrocytes detection in urine sediment by light microscopy NEGATIVE NEGATIVE Urine ketones detection by automated test strip 3+ NEGATIVE Urine nitrite detection by test strip NEGATIVE NEGATIVE Urine total bilirubin detection by test strip NEGATIVE NEGATIVE Urine urobilinogen measurement by automated test strip (mass/volume) NORMAL NORMAL Urine leukocyte esterase detection by dipstick 1+ NEGATIVE Automated urine sediment erythrocyte count by microscopy (number/high power field) NONE NRG Automated urine sediment leukocyte count by microscopy (number/high power field ) [HPF] NRG Bacteria detection in urine sediment by light microscopy NONE NRG Crystals detection in urine sediment by light microscopy PRESENT NRG Casts detection in urine sediment by light microscopy NONE NRG Mucus detection in urine sediment by light microscopy NEGATIVE NRG Complete urinalysis with reflex to culture NO NRG Amorphous sediment detection in urine sediment by light microscopy LARGE ASHLEY URATES NRG Urine drug screening test - 12/21/18 22:36 Urine phencyclidine detection by screening method NEGATIVE NEGATIVE Urine benzodiazepines detection by screening method NEGATIVE NEGATIVE Urine cocaine detection NEGATIVE NEGATIVE Urine amphetamines detection by screening method NEGATIVE NEGATIVE Urine methamphetamine detection by screening method NEGATIVE NEGATIVE Urine cannabinoids detection by screening method NEGATIVE NEGATIVE Urine opiates detection by screening method NEGATIVE NEGATIVE Urine barbiturates detection NEGATIVE NEGATIVE Screening urine tricyclic antidepressants detection NEGATIVE NEGATIVE Urine methadone detection by screening method NEGATIVE NEGATIVE Urine oxycodone detection NEGATIVE NEGATIVE Urine propoxyphene detection NEGATIVE NEGATIVE Encounters ACCT No. Visit Date/Time Discharge Status Pt. Type Provider Facility Loc./Unit Complaint [id number] 01/30/2013 14:40:44 [facility] [id number] 12/31/2018 18:40:00 12/31/2018 23:59:59 CLS Outpatient [facility] [id number] 2018 15:35:00 2018 18:25:00 DIS Outpatient Amber Fernandez [id number] 2018 15:57:35 Document Registration [id number] 12/28/2018 09:23:00 12/28/2018 23:59:59 CLS Outpatient JAIRO GROVER, BANG Amaro [facility] CARD PALPITATIONS,CHEST PAIN [id number] 12/21/2018 21:16:00 12/21/2018 23:51:00 DIS Emergency NEHAL GRAY DO [facility] ER HEART RACING/L SIDE PAIN [id number] 12/19/2018 10:45:00 12/19/2018 23:59:59 CLS Preadmit NAVDEEP GROVER FACC, RAMAN DHILLON CCDS [facility] RAD CHEST DISCOMFORT [id number] 2018 18:51:00 2018 20:40:00 DIS Emergency LEIGHTON THOMAS SYRUP MAKER [facility] ER CP [id number] 12/07/2018 10:44:00 12/07/2018 14:18:00 DIS Emergency LUNA NOBLE MD [facility] ER PALPITATIONS [id number] 12/07/2018 11:56:00 Document Registration
[2019-01-07] MEDS ORDERED: ASPIRIN 81 MG CHEW (CHILDREN'S ASA) PO ONE (13:00)
[2019-01-07] MEDS ORDERED: KETOROLAC 30 MG/ML VIAL IVP ONE (13:00)
--- NOTE | 2019-01-07 13:02 | ED Chest Pain ---
General Chief Complaint: Chest Pain Stated Complaint: CHEST PAIN Source: patient, family Exam Limitations: no limitations History of Present Illness Date Seen by Provider: Jan 07, 2019 Time Seen by Provider: 12:46 Initial Comments The patient presents to the ER by private conveyance with chief complaint of chest pain and heart thumping out of his chest. He was here with his daughter who is being seen for a rash when the episode of chest pain and thumping came on and lasted for about a minute. He doesn't history of high blood pressure and his been prescribed Coreg 3.125 however he only took it once because he didn't feel he needed it. He says he's had this before once this morning and once yesterday and then again he's had a few times since September 2018. He was seen at the ER and then went to see Dr. Gill about it as well as outpatient cardiology. Apparently nobody thought much of it and did not schedule him any follow-up. Patient try to get in with PCP this morning but there is no availability. He denies any family history of coronary disease, clots or sudden onset cardiac . He thinks he does have a history of anxiety although it is not diagnosed. He denies a history of GERD. The pain is worse with movement or direct palpation of the chest. He is presently finishing up a course of antibiotics for a sinus infection diagnosed by his dentist. Allergies and Home Medications Allergies Coded Allergies: No Known Drug Allergies (Unverified , 12/07/18) Home Medications Carvedilol 3.125 Mg Tablet, 3.125 MG PO BID, (Reported) Methocarbamol 750 Mg Tablet, 750 MG PO Q4H PRN for PAIN-MODERATE Prescribed by: LEIGHTON THOMAS on 12/13/182018 Metoprolol Succinate 100 Mg Tab.er.24h, 100 MG PO DAILY Prescribed by: EDDIE WRIGHT on 01/07/19 1505 Naproxen 500 Mg Tablet, 500 MG PO BID PRN for PAIN-MODERATE TO SEVERE Prescribed by: LEIGHTON THOMAS on 12/13/182018 Patient Home Medication List Home Medication List Reviewed: Yes Review of Systems Review of Systems Constitutional: No chills, No diaphoresis EENTM: No Eye Tearing, No Ear Drainage Respiratory: Denies Cough, Denies Orthopnea, Denies Shortness of Air, Denies SOA With Exertion Cardiovascular: See HPI, Chest Pain; Denies Edema, Denies Irregular Heart Rate ; Palpitations Gastrointestinal: Denies Abdomen Distended, Denies Abdominal Pain, Denies Constipated, Denies Diarrhea, Denies Nausea Genitourinary: Denies Burning, Denies Discharge Musculoskeletal: No back pain, No joint pain Past Imlkeia-Fadsck-Smvgdd Hx Patient Social History Alcohol Use: Denies Use Smoking Status: Former Smoker Type Used: Cigarettes Former Smoker, Quit: Nov 20, 2015 2nd Hand Smoke Exposure: No Recent Foreign Travel: No Contact w/Someone Who Travel: No Recent Hopitalizations: No Seasonal Allergies Seasonal Allergies: No Past Medical History Surgeries: No Respiratory: No Cardiac: Yes (HEART MONITOR PLACED THIS AM) Hypertension Neurological: No Genitourinary: No Gastrointestinal: No Musculoskeletal: No Endocrine: No HEENT: No Cancer: No Psychosocial: No Integumentary: No Physical Exam Vital Signs Vital Signs - First Documented 01/07/19 12:36 Temp 98.7 Pulse 103 Resp 18 B/P (MAP) 149/111 (124) Pulse Ox 98 O2 Delivery Room Air Capillary Refill : Height, Weight, BMI Height: 6'0" Weight: 171lbs. 0oz. 77.867297an; BMI Method:Stated General Appearance: No Apparent Distress, WD/WN, Anxious HEENT: PERRL/EOMI, TMs Normal, Normal ENT Inspection, Pharynx Normal, Moist Mucous Membranes Neck: Full Range of Motion, Normal Inspection, Non Tender, Supple Respiratory: No Chest Non Tender; Lungs Clear, Normal Breath Sounds, No Accessory Muscle Use, No Respiratory Distress, Other (left chest wall acutely tender to direct palpation) Cardiovascular: Regular Rate, Rhythm, No Edema, No JVD, No Murmur, Normal Peripheral Pulses Gastrointestinal: Normal Bowel Sounds, No Organomegaly, Non Tender, Soft Extremity: Normal Capillary Refill, Normal Inspection, Non Tender, No Pedal Edema Neurologic/Psychiatric: Alert, Oriented x3 Skin: Normal Color, Warm/Dry Progress/Results/Core Measures Results/Orders Lab Results Laboratory Tests Test 01/07/19 12:55 Range/Units White Blood Count 3.7 L 4.3-11.0 10^3/uL Red Blood Count 5.97 H 4.35-5.85 10^6/uL Hemoglobin 16.6 13.3-17.7 G/DL Hematocrit 49 40-54 % Mean Corpuscular Volume 82 80-99 FL Mean Corpuscular Hemoglobin 28 25-34 PG Mean Corpuscular Hemoglobin Concent 34 32-36 G/DL Red Cell Distribution Width 13.0 10.0-14.5 % Platelet Count 248 130-400 10^3/uL Mean Platelet Volume 10.0 7.4-10.4 FL Neutrophils (%) (Auto) 25 L 42-75 % Lymphocytes (%) (Auto) 55 H 12-44 % Monocytes (%) (Auto) 15 H 0-12 % Eosinophils (%) (Auto) 4 0-10 % Basophils (%) (Auto) 1 0-10 % Neutrophils # (Auto) 0.9 L 1.8-7.8 X 10^3 Lymphocytes # (Auto) 2.0 1.0-4.0 X 10^3 Monocytes # (Auto) 0.6 0.0-1.0 X 10^3 Eosinophils # (Auto) 0.2 0.0-0.3 10^3/uL Basophils # (Auto) 0.1 0.0-0.1 10^3/uL Erythrocyte Sedimentation Rate 1 0-15 MM/HR Prothrombin Time 13.6 12.2-14.7 SEC INR Comment 1.0 0.8-1.4 Activated Partial Thromboplast Time 34 24-35 SEC Sodium Level 140 135-145 MMOL/L Potassium Level 3.8 3.6-5.0 MMOL/L Chloride Level 102 98-107 MMOL/L Carbon Dioxide Level 26 21-32 MMOL/L Anion Gap 12 5-14 MMOL/L Blood Urea Nitrogen 12 7-18 MG/DL Creatinine 1.33 H 0.60-1.30 MG/DL Estimat Glomerular Filtration Rate > 60 BUN/Creatinine Ratio 9 Glucose Level 83 70-105 MG/DL Calcium Level 10.1 8.5-10.1 MG/DL Corrected Calcium 8.5-10.1 MG/DL Magnesium Level 2.1 1.8-2.4 MG/DL Total Bilirubin 1.6 H 0.1-1.0 MG/DL Aspartate Amino Transf (AST/SGOT) 20 5-34 U/L Alanine Aminotransferase (ALT/SGPT) 15 0-55 U/L Alkaline Phosphatase 73 40-136 U/L Myoglobin 23.4 10.0-92.0 NG/ML Troponin I < 0.028 <0.028 NG/ML C-Reactive Protein High Sensitivity 0.02 0.00-0.50 MG/DL B-Type Natriuretic Peptide < 10.0 <100.0 PG/ML Total Protein 7.5 6.4-8.2 GM/DL Albumin 4.8 H 3.2-4.5 GM/DL Lipase 14 8-78 U/L My Orders Orders - KYLE,EDDIE J Cbc With Automated Diff (01/07/19 12:52) Magnesium (01/07/19 12:52) Ekg Tracing (01/07/19 12:52) Cardiac Profile 1 (01/07/19 12:52) Comprehensive Metabolic Panel (01/07/19 12:52) Myoglobin Serum (01/07/19 12:52) Protime With Inr (01/07/19 12:52) Partial Thromboplastin Time (01/07/19 12:52) O2 (01/07/19 12:52) Monitor-Rhythm Ecg Trace Only (01/07/19 12:52) Lipid Panel (01/08/19 06:00) Aspirin Chewable Tablet (Baby Aspirin Ch (01/07/19 13:00) Saline Lock/Iv-Start (01/07/19 12:52) Lipase (01/07/19 12:52) BNP (01/07/19 12:52) Chest Pa/Lat (2 View) (01/07/19 12:52) Ketorolac Injection (Toradol Injection) (01/07/19 13:00) Saline Lock/Iv-Start (01/07/19 12:52) Hs C Reactive Protein (01/07/19 12:56) Erythrocyte Sedimentation Rate (01/07/19 12:56) Medications Given in ED Current Medications Medications Dose Ordered Sig/Mayra Route Start Time Stop Time Status Last Admin Dose Admin Aspirin 324 mg ONCE ONCE PO 01/07/19 13:00 01/07/19 13:01 DC 01/07/19 13:18 324 MG Vital Signs/I&O 01/07/19 12:36 Temp 98.7 Pulse 103 Resp 18 B/P (MAP) 149/111 (124) Pulse Ox 98 O2 Delivery Room Air Progress Progress Note : Time: 13:03 Progress Note Sounds like costochondritis however the patient does have a lot of anxiety around it. He's pointed to a nodule on his chest which is just his rib. We have offered a Toradol shot and he's declined because he doesn't want a shot. EKG does show some changes could be consistent with left ventricular hypertrophy which is probably secondary to his significant high blood pressure. After resting he still at 150 over 110. This is the fourth visit to the ER in the last 2 months for the same complaint of chest pain and heart palpitations. He followed up outpatient with Dr. Zee and does not like there is any follow-up after his echocardiogram and workup outpatient was done. Echocardiogram from December 28, [address] Zee: Cavity size and wall thickness are normal. Systolic function is normal with an EF of 60-65%. ED ACS score 3 points lower risk. Low risk by the EDACS Score. If the patient also has: (1) EKG without new ischemic changes and (2) negative initial and 2- hour troponins, then this patient is safe for discharge to early outpatient follow-up investigation (or proceed to earlier inpatient testing). If EKG with ischemic changes or positive troponin, they are not low risk and require normal risk stratification. Patient also remarks that he's had weight loss over the last 6 months from 200 pounds down to 165 pounds. Is not intentional. Initial ECG Impression Date: Jan 07, 2019 Initial ECG Impression Time: 12:31 Initial ECG Rate: 74 Initial ECG Rhythm: Normal Sinus Initial ECG Intervals: Normal Initial ECG Impression: Normal, Nonspecific Changes Initial ECG Comparisson: Unchanged Comment Possible left ventricular hypertrophy with some one half to one box elevation of the ST segment in the anterior leads V1, V2. This was seen in previous couple months EKGs though not as pronounced in some. Diagnostic Imaging Diagonstic Imaging: Xray Plain Films/CT/US/NM/MRI: chest (2v) Comments NAME: ALFA DENISE MED REC#: [id number] PHYSICIAN: EDDIE WRIGHT MD CC: ALYSA ALEXIS MD; EDDIE WRIGHT Page 1 of 1 RADIOLOGY REPORT [facility] [place], [place] CC: ALYSA ALEXIS MD; EDDIE WRIGHT Page 1 of 1 RADIOLOGY REPORT NAME: ALFA DENISE MED REC#: [id number] PT STATUS: REG ER : 1995 PHYSICIAN: EDDIE WRIGHT MD ADMIT DATE: 01/07/19/ER Signed Date of Exam: 01/07/19 CHEST PA/LAT (2 VIEW) CHEST PA/LAT (2 VIEW) Indication: Left-sided chest pain Comparison: 12/07/2018 Findings: No focal pneumonic consolidation, pleural effusion or pneumothorax. Normal heart size and pulmonary vasculature. Impression: No acute cardiopulmonary process. Dictated by: Dictated on workstation # [id number] Dict: 01/07/19 1331 Trans: 01/07/19 1331 Interpreted by: ALYSA ALEXIS MD Electronically signed by: ALYSA ALEXIS MD 01/07/191330 Reviewed: Reviewed by Me Consults #1: Consulting Physician: RAMAN ZEE MD FACP FACC CCDS Consults Notes Discussed the case with Dr. Zee and he remembers the patient also recalls there being some history of weight loss. He highly recommends the patient did endoscopy. We can set him up with the general surgery outpatient. He also thinks the patient should have primary care work him up for noncardiac causes of chest pain. Final he recommends metoprolol 100 mg succinate daily to help with the palpitations. Consults #2: Consulting Physician: VAMSHI RHOADES MD Consults Notes Discussed the case the weight loss and difficulty swallowing and he agrees to get his schedule her to call the patient and have them set up an appointment. Departure Impression Primary Impression: Intermittent palpitations Additional Impressions: Recent unexplained weight loss Difficulty swallowing solids Hypertension Qualified Codes: I10 - Essential (primary) hypertension Chest pain Qualified Codes: R07.9 - Chest pain, unspecified Disposition: 01 HOME, SELF-CARE Condition: Improved Departure-Patient Inst. Decision time for Depature: 15:03 Referrals: BANG GILL MD (PCP/Family) Primary Care Physician VAMSHI RHOADES MD Patient Instructions: Chest Pain That Is Not Caused by the Heart (DC) Add. Discharge Instructions: Call Dr. Rhoades, General Surgery and request to be set up for EGD/colonoscopy to workup your recent unexplained weight loss and difficulty swallowing. Establish care with a primary care provider to help follow your weight loss and palpitations. Dr. Zee does not think that your chest pain and palpitations are related to your heart after an outpatient workup. He does recommend to start the metoprolol succinate 100 mg daily to help with the palpitations and high blood pressure. Follow-up with primary care to discuss your high blood pressure and whether or not you need further medication. All discharge instructions reviewed with patient and/or family. Voiced understanding. Scripts Metoprolol Succinate (Metoprolol Succinate) 100 Mg Tab.er.24h 100 MG PO DAILY for 30 Days, #30 TAB 0 Refills Prov: EDDIE WRIGHT 01/07/19 Copy Copies To 1: RAMAN ZEE MD FACP FAC CCDS; VAMSHI RHOADES MD, TITUS J Jan 07, 2019 13:02
[2019-01-07 13:07] LABS: BASOPHILS # (AUTO) 0.1 10^3/uL (0.0-0.1); BASOPHILS % (AUTO) 1 % (0-10); EOSINOPHILS # (AUTO) 0.2 10^3/uL (0.0-0.3); EOSINOPHILS % (AUTO) 4 % (0-10); HEMATOCRIT 49 % (40-54); HEMOGLOBIN 16.6 G/DL (13.3-17.7); LYMPHOCYTES % (AUTO) 55 % (12-44); MEAN CORPUSCULAR HEMOGLOBIN 28 PG (25-34); MEAN CORPUSCULAR HGB CONC 34 G/DL (32-36); MEAN CORPUSCULAR VOLUME 82 FL (80-99); MONOCYTES # (AUTO) 0.6 X 10^3 (0.0-1.0); MONOCYTES % (AUTO) 15 % (0-12); NEUTROPHILS # (AUTO) 0.9 X 10^3 (1.8-7.8); NEUTROPHILS % (AUTO) 25 % (42-75); PLATELET COUNT 248 10^3/uL (130-400); WHITE BLOOD COUNT 3.7 10^3/uL (4.3-11.0)
[2019-01-07 13:18] LABS: PROTHROMBIN TIME PATIENT 13.6 SEC (12.2-14.7)
--- NOTE | 2019-01-07 13:18 | NUR ---
Patient refused toradol injection stating, "I don't want a shot.' Dr. Olivas notified.
[2019-01-07 13:25] LABS: ALANINE AMINOTRANSFERASE 15 U/L (0-55); ALBUMIN 4.8 GM/DL (3.2-4.5); ALKALINE PHOSPHATASE 73 U/L (40-136); BILIRUBIN,TOTAL 1.6 MG/DL (0.1-1.0); BUN/CREATININE RATIO 9; CALCIUM 10.1 MG/DL (8.5-10.1); CARBON DIOXIDE 26 MMOL/L (21-32); CHLORIDE 102 MMOL/L (98-107); CREATININE SERUM 1.33 MG/DL (0.60-1.30); GFR ESTIMATED > 60; GLUCOSE 83 MG/DL (70-105); LIPASE 14 U/L (8-78); MAGNESIUM 2.1 MG/DL (1.8-2.4); POTASSIUM 3.8 MMOL/L (3.6-5.0); SODIUM 140 MMOL/L (135-145); TOTAL PROTEIN 7.5 GM/DL (6.4-8.2)
[2019-01-07 13:32] LABS: MYOGLOBIN SERUM 23.4 NG/ML (10.0-92.0)
--- NOTE | 2019-01-07 13:34 | Diagnostic Imaging Report ---
CHEST PA/LAT (2 VIEW) Indication: Left-sided chest pain Comparison: 12/07/2018 Findings: No focal pneumonic consolidation, pleural effusion or pneumothorax. Normal heart size and pulmonary vasculature. Impression: No acute cardiopulmonary process. Dictated by: Dictated on workstation # [id number]
[2019-01-07 15:20] VITALS: BP 126/86
== END 2019-01-07 15:20 | disposition home or self-care (01) ==
LOC: EDUNIT# 12:36 → ER 12:37
DX: R00.2 Palpitations (principal); R13.10 Dysphagia, unspecified; I10 Essential (primary) hypertension; R07.89 Other chest pain; R63.4 Abnormal weight loss; Z87.891 Personal history of nicotine dependence
CPT/HCPCS: 36415; 71046; 80053; 83690; 83735; 83874; 83880; 84484; 85025; 85610; 85652; 85730; 86141; 93041

== ENCOUNTER 2019-01-11 10:30 | Outpatient (CLI) | payer MEDICAID ==
[~2019-01-11] VITALS: Ht 185.4 cm; Wt 74.8 kg
[~2019-01-11 10:30] MED LIST changes: +METO-395 PO
== END 2019-01-11 11:04 ==
LOC: PREOP 10:30
PROVIDERS: ATTEND Surgery
DX: Z01.818 Encounter for other preprocedural examination (principal)

== ENCOUNTER 2019-01-14 09:24 | Day surgery (SDC) | payer MEDICAID ==
[~2019-01-14] VITALS: Ht 185.4 cm; Wt 74.8 kg
--- OUTSIDE RECORDS SUMMARY | 2019-01-14 09:28 | XMS REPORT | Continuity of Care Document ---
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 Ot I10 ESSENTIAL (PRIMARY) HYPERTENSION 12/17/2018 LEIGHTON [...] GILL MD Ot R07.9 CHEST PAIN, UNSPECIFIED 01/07/2019 KYLE GROVER, EDDIE Bravo Ot I10 ESSENTIAL (PRIMARY) HYPERTENSION 01/07/2019 EDDIE WRIGHT MD Ot R00.2 PALPITATIONS 01/07/2019 KYLE GROVER, EDDIE Bravo Ot R07.89 OTHER CHEST PAIN 01/07/2019 EDDIE WRIGHT MD Ot R13.10 DYSPHAGIA, UNSPECIFIED 01/07/2019 EDDIE WRIGHT MD Ot R63.4 ABNORMAL WEIGHT LOSS 01/07/2019 KYLE GROVER, EDDIE Bravo Ot Z87.891 PERSONAL HISTORY OF NICOTINE DEPENDENCE 01/10/2019 JAIRO GROVER, BANG Amaro Ot R00.2 PALPITATIONS 01/10/2019 BANG GILL MD, Ot R07.9 CHEST PAIN, UNSPECIFIED Procedures There [...] 12/21/18 22:23 Blood monocytes/100 leukocytes 25 % NRG Manual blood segmented neutrophils/100 leukocytes 29 % NRG Manual blood lymphocytes/100 leukocytes 28 % NRG Manual eosinophils/100 leukocytes in nose 2 % NRG Blood lymphocytes variant/100 leukocytes 16 % NRG Blood erythrocyte morphology finding identification NORMAL NRG PT panel in platelet poor plasma by [...] NEGATIVE NEGATIVE Urine propoxyphene detection NEGATIVE NEGATIVE Complete blood count (CBC) with automated white blood cell (WBC) differential - 01/07/19 12:55 Blood leukocytes automated count (number/volume) 3.7 10*3/uL 4.3-11.0 Blood erythrocytes automated count (number/volume) 5.97 10*6/uL 4.35-5.85 Venous blood hemoglobin measurement (mass/volume) 16.6 g/dL 13.3-17.7 Blood hematocrit (volume fraction) 49 % 40-54 Automated erythrocyte mean corpuscular volume 82 [foz_us] 80-99 Automated erythrocyte mean corpuscular hemoglobin (mass per erythrocyte) 28 pg 25-34 Automated erythrocyte mean corpuscular hemoglobin concentration measurement ( mass/volume) 34 g/dL 32-36 Automated erythrocyte distribution width ratio 13.0 % 10.0-14.5 Automated blood platelet count (count/volume) 248 10*3/uL 130-400 Automated blood platelet mean volume measurement 10.0 [foz_us] 7.4-10.4 Automated blood neutrophils/100 leukocytes 25 % 42-75 Automated blood lymphocytes/100 leukocytes 55 % 12-44 Blood monocytes/100 leukocytes 15 % 0-12 Automated blood eosinophils/100 leukocytes 4 % 0-10 Automated blood basophils/100 leukocytes 1 % 0-10 Blood neutrophils automated count (number/volume) 0.9 10*3 1.8-7.8 Blood lymphocytes automated count (number/volume) 2.0 10*3 1.0-4.0 Blood monocytes automated count (number/volume) 0.6 10*3 0.0-1.0 Automated eosinophil count 0.2 10*3/uL 0.0-0.3 Automated blood basophil count (count/volume) 0.1 10*3/uL 0.0-0.1 PT panel in platelet poor plasma by coagulation assay - 01/07/19 12:55 Prothrombin time (PT) in platelet poor plasma by coagulation assay 13.6 s 12.2-14.7 INR in platelet poor plasma or blood by coagulation assay 1.0 0.8-1.4 Activated partial thromboplastin time (aPTT) in platelet poor plasma bycoagulation assay - 01/07/19 12:55 Activated partial thromboplastin time (aPTT) in platelet poor plasma bycoagulation assay 34 s 24-35 Serum or plasma C reactive protein measurement (mass/volume) - 01/07/19 12:55 Serum or plasma C reactive protein measurement (mass/volume) 0.02 mg /dL 0.00-0.50 Comprehensive metabolic panel - 01/07/19 12:55 Serum or plasma sodium measurement (moles/volume) 140 mmol/L 135-145 Serum or plasma potassium measurement (moles/volume) 3.8 mmol/L 3.6-5.0 Serum or plasma chloride measurement (moles/volume) 102 mmol/L 98-107 Carbon dioxide 26 mmol/L 21-32 Serum or plasma anion gap determination (moles/volume) 12 mmol/L 5-14 Serum or plasma urea nitrogen measurement (mass/volume) 12 mg/dL 7-18 Serum or plasma creatinine measurement (mass/volume) 1.33 mg/dL 0.60-1.30 Serum or plasma urea nitrogen/creatinine mass ratio 9 NRG Serum or plasma creatinine measurement with calculation of estimated glomerular filtration rate > NRG Serum or plasma glucose measurement (mass/volume) 83 mg/dL 70-105 Serum or plasma calcium measurement (mass/volume) 10.1 mg/dL 8.5-10.1 Serum or plasma total bilirubin measurement (mass/volume) 1.6 mg/dL 0.1-1.0 Serum or plasma alkaline phosphatase measurement (enzymatic activity/volume) 73 U/L 40-136 Serum or plasma aspartate aminotransferase measurement (enzymatic activity/ volume) 20 U/L 5-34 Serum or plasma alanine aminotransferase measurement (enzymatic activity/volume ) 15 U/L 0-55 Serum or plasma protein measurement (mass/volume) 7.5 g/dL 6.4-8.2 Serum or plasma albumin measurement (mass/volume) 4.8 g/dL 3.2-4.5 Magnesium - 01/07/19 12:55 Magnesium 2.1 mg/dL 1.8-2.4 Serum or plasma troponin i.cardiac measurement (mass/volume) - 01/07/19 12:55 Serum or plasma troponin i.cardiac measurement (mass/volume) < ng/ mL <0.028 Myoglobin, serum - 01/07/19 12:55 Myoglobin, serum 23.4 ng/mL 10.0-92.0 Lipase - 01/07/19 12:55 Lipase 14 U/L 8-78 Erythrocyte sedimentation rate by westergren method - 01/07/19 12:55 Erythrocyte sedimentation rate by westergren method 1 mm 0-15 Serum or plasma lithium measurement (moles/volume) - 01/07/19 12:55 BNP level < pg/mL <100.0 Encounters ACCT No. Visit Date/Time Discharge Status Pt. Type Provider Facility Loc./Unit Complaint [id number] 01/30/2013 14:40:44 RECURRING [id number] 12/31/2018 18:40:00 12/31/2018 23:59:59 CLS Outpatient [facility] [id number] 2018 15:35:00 2018 18:25:00 DIS Outpatient Amber Fernandez [id number] 2018 15:57:35 Document Registration [id number] 01/11/2019 10:30:00 01/11/2019 11:04:00 DIS Outpatient JF GROVER, VAMSHI Larson [facility] PREOP EGD [id number] 01/07/2019 12:37:00 01/07/2019 15:20:00 DIS Emergency KYLE GROVER, EDDIE Bravo [facility] ER CHEST PAIN [id number] 12/28/2018 09:23:00 12/28/2018 23:59:59 CLS Outpatient JAIRO GROVER, BANG Amaro [facility] CARD PALPITATIONS,CHEST PAIN [id number] 12/21/2018 21:16:00 12/21/2018 23:51:00 DIS Emergency NEHAL GRAY DO [facility] ER HEART RACING/L SIDE PAIN [id number] 12/19/2018 10:45:00 12/19/2018 23:59:59 CLS Preadmit NAVDEEP GROVER FACC, RAMAN DHILLON CCDS [facility] RAD CHEST DISCOMFORT [id number] 2018 18:51:00 2018 20:40:00 DIS Emergency LEIGHTON THOMAS APRN [facility] ER CP [id number] 12/07/2018 10:44:00 12/07/2018 14:18:00 DIS Emergency AIDE GROVER, LUNA Kincaid [facility] ER PALPITATIONS [id number] 01/14/2019 10:30:00 PEN Preadmit JF GROVER, VAMSHI Larson [facility] ENDO WT LOSS/DYSPHAGIA [id number] 12/07/2018 11:56:00 Document Registration
[2019-01-14] MEDS ORDERED: NS IV 500 ML 500 ML IV PRN (09:30)
[2019-01-14] MEDS ORDERED: MIDAZOLAM 2 MG/2 ML (VERSED) VIAL IVP ONE (09:30)
[2019-01-14] MEDS ORDERED: fentaNYL INJECTION 100 MCG/2 ML AMP IVP ONE (09:30)
[2019-01-14] MEDS ORDERED: HURRICAINE EXT TUBE (BENZOCAINE) XX PRN (09:30)
[2019-01-14] MEDS ORDERED: NS IV 500 ML 500 ML ONE (09:32)
[2019-01-14 10:11] VITALS: BP 147/98
[2019-01-14] MEDS ORDERED: MIDAZOLAM 2 MG/2 ML (VERSED) VIAL ONE ×4 (11:03)
[2019-01-14] MEDS ORDERED: fentaNYL INJECTION 100 MCG/2 ML AMP ONE (11:03)
[2019-01-14] MEDS ORDERED: HURRICAINE EXT TUBE (BENZOCAINE) ONE (11:04)
--- NOTE | 2019-01-14 11:07 | History & Physicial ---
History of Present Illness History of Present Illness Reason for visit/HPI to undergo an upper endoscopy regarding symptoms of gastroesophageal reflux, intermittent dysphagia and weight loss Date of Admission 01/14/19 Date Seen by a Provider: Jan 14, 2019 Time Seen by a Provider: 11:05 I consulted on this patient on 01/14/19 11:05 Attending Physician Vamshi Rhoades MD Admitting Physician Olegario Vu MD Consult Allergies and Home Medications Allergies Coded Allergies: No Known Drug Allergies (Unverified , 12/07/18) Home Medications Metoprolol Succinate 100 Mg Tab.er.24h, 100 MG PO DAILY Prescribed by: EDDIE WRIGHT on 01/07/19 1505 Patient Home Medication List Home Medication List Reviewed: Yes Past Ytqhkwz-Ojhyqm-Rmxzma Hx Patient Social History Marrital Status: single Employed/Student: unemployed Alcohol Use: Denies Use Recreational Drug Use: No Smoking Status: Former Smoker Former Smoker, Quit: Nov 20, 2015 Type Used: Cigarettes 2nd Hand Smoke Exposure: No Recent Foreign Travel: No Contact w/other who traveled: No Recent Hopitalizations: No Recent Infectious Disease Expo: No Seasonal Allergies Seasonal Allergies: No Surgeries Yes (WISDOM TEETH) Respiratory No Cardiovascular Yes Hypertension, Palpitations Neurological No Genitourinary No Gastrointestinal Yes (DYSPHAGIA, WT LOSS) Musculoskeletal No Endocrine History of Endocrine Disorders: No HEENT History of HEENT Disorders: No Cancer No Psychosocial History of Psychiatric Problem: No Integumentary History of Skin or Integumenta: No Blood Transfusions History of Blood Disorders: No Review of Systems Constitutional: weight loss EENTM: no symptoms reported Respiratory: no symptoms reported Cardiovascular: no symptoms reported Gastrointestinal: see HPI Genitourinary: no symptoms reported Musculoskeletal: joint pain, muscle pain Psychiatric/Neurological: No Symptoms Reported Physical Exam Vital Signs Vital Signs - First Documented 01/14/19 10:11 Temp 98.6 Pulse 60 Resp 18 B/P (MAP) 147/98 (114) Pulse Ox 100 O2 Delivery Room Air Capillary Refill : Height, Weight, BMI Height: 6'1.00" Weight: 165lbs. 0.0oz. 74.265311xx; 21.8 BMI Method:Stated General Appearance: No Apparent Distress Neck: Normal Inspection Respiratory: Lungs Clear Cardiovascular: Regular Rate, Rhythm Gastrointestinal: Non Tender, Soft Neurologic/Psychiatric: Alert, Oriented x3 Skin: Warm/Dry Assessment/Plan Assessment and Plan gentleman with symptoms of gastroesophageal reflux, intermittent dysphagia and weight loss. For upper endoscopy Admission Diagnosis Admission Status: Other (Outpt Proc) VAMSHI RHOADES MD Jan 14, 2019 11:07
--- NOTE | 2019-01-14 11:08 | Conscious Sedation/ASA ---
Conscious Sedation Pre-Proced Time 11:07 ASA Score 2 For ASA 3 and 4: Consider anesthesia and medical clearance. Also, for patients with a history of failed moderate sedation consider anesthesia. Airway Lungs Heart ASA score ASA 1: a normal healthy patient ASA 2: a patient with a mild systemic disease (mid diabetes, controlled hypertension, obesity ASA 3: a patient with a severe systemic disease that limits activity (angina , COPD, prior Myocardial infarction) ASA 4: a patient with an incapacitating disease that is a constant threat to life (CHF, renal failure) ASA 5: a moribund patient not expected to survive 24 hrs. (ruptured aneurysm) ASA 6: a declared brain- patient whose organs are being harvested. For emergent operations, add the letter E after the classification Mallampati Classification Grade 1 Sedation Plan Discussed options with patient/fam The patient is an appropriate candidate to undergo the planned procedure, sedation, and anesthesia. The patient immediately re-assessed prior to indication. VAMSHI RHOADES MD Jan 14, 2019 11:08
--- NOTE | 2019-01-14 11:24 | Endo Procedure Record ---
Endo Procedure Report Date of Procedure Last Colonoscopy: No Jan 14, 2019 Surgeon (s) VAMSHI RHOADES MD Post Procedure/Op Diagnosis mild distal gastritis and duodenitis Procedure Performed EGD with antral biopsy for H. pylori Description of Procedure Anesthesia Type: Conscious Sedation Specimen(s) collected/removed antral mucosa for H. pylori Description of the Procedure Indication for the procedure: This gentleman came in for an upper endoscopy to evaluate symptoms of reflux disease along with intermittent dysphagia and weight loss.informed consent was obtained after reviewing the procedure in detail. Description of the procedure: He was placed in left lateral decubitus position and his vital signs were monitored.conscious sedation was achieved using Versed and fentanyl. The flexible gastroscope was then introduced down the esophagus, past the stomach, into the proximal duodenum Findings: Esophagus: Mild distal esophagitis. There was no stricture Stomach: Mild distal gastritis without any ulceration. Biopsy for H. pylori was obtained. Duodenum: Changes of mild duodenitis along the first part. He tolerated the procedure well and was taken back to the nursing area in a stable condition. Impression: Symptoms of reflux. Mild esophagitis and duodenitis. No stricture. H. pylori status pending. Copy Copies To 1: BANG GILL MD, XAVIER M MD Jan 14, 2019 11:23
--- NOTE | 2019-01-14 11:32 | Discharge Inst-Simple/Standard ---
Discharge Inst-Standard Discharge Medications New, Converted or Re-Newed RX: Other Patient Instructions/Follow Up Plan of Care/Instructions/FU: Prilosec 20 mg OTC daily. Follow-up with his primary doctor Activity as Tolerated: Yes Discharge Diet: No Restrictions VAMSHI RHOADES MD Jan 14, 2019 11:32
[2019-01-14 11:55] VITALS: BP 105/64
[2019-01-14 12:25] VITALS: BP 119/81
[2019-01-14 12:30] VITALS: BP 119/81
== END 2019-01-14 12:30 | disposition home or self-care (01) ==
LOC: ENDO 09:24
PROVIDERS: ATTEND Surgery
DX: K29.70 Gastritis, unspecified, without bleeding (principal); K29.80 Duodenitis without bleeding; K20.9 Esophagitis, unspecified; K31.9 Disease of stomach and duodenum, unspecified; I10 Essential (primary) hypertension; R00.2 Palpitations; Z79.899 Other long term (current) drug therapy; Z87.891 Personal history of nicotine dependence

== ENCOUNTER 2019-01-16 12:04 | Emergency (ER) | payer MEDICAID ==
[~2019-01-16] VITALS: Ht 185.4 cm; Wt 73.9 kg
[2019-01-16] MEDS ORDERED: ALBUTEROL AER HFA (12:43)
[2019-01-16] MEDS ORDERED: ITRACONAZOLE 100 MG (12:43)
[2019-01-16] MEDS ORDERED: RT-ALBUTEROL SULF 2.5 MG/3 ML PRE-MIX VIAL INH SCH (13:00)
--- NOTE | 2019-01-16 13:00 | ED General ---
General Chief Complaint: Abdominal/GI Problems Stated Complaint: ABD PAIN Source of Information: Patient, Family Exam Limitations: No Limitations History of Present Illness Date Seen by Provider: Jan 16, 2019 Time Seen by Provider: 12:54 Initial Comments This 23-year-old male presents with a history of a mold exposure in the last several months. The inhaled mold has caused him great concern. He is complaining of a variety of problems that he attributes to the mold including weight loss, palpitations, difficulty swallowing, and general malaise. The patient has had negative EGD and normal cardiology evaluation following this exposure. His primary care physician, Dr. Ganesh wDyer, has asked that a mold culture be done. The lab believes that a sputum culture would be the most effective way of looking for mold exposure for the patient. Allergies and Home Medications Allergies Coded Allergies: No Known Drug Allergies (Unverified , 12/07/18) Home Medications Metoprolol Succinate 100 Mg Tab.er.24h, 100 MG PO DAILY Prescribed by: EDDIE WRIGHT on 01/07/19 1505 Patient Home Medication List Home Medication List Reviewed: Yes Review of Systems Review of Systems Constitutional: No chills, No fever; malaise EENTM: other (patient is complaining of a white coated tongue.) Respiratory: see HPI Cardiovascular: palpitations Gastrointestinal: other (difficulty swallowing) Genitourinary: no symptoms reported Musculoskeletal: no symptoms reported Skin: no symptoms reported Psychiatric/Neurological: No Symptoms Reported Hematologic/Lymphatic: No Symptoms Reported Immunological/Allergic: no symptoms reported Past Oetbhwl-Gnfdqe-Jjledd Hx Past Med/Social Hx: Reviewed Nursing Past Med/Soc Hx Patient Social History Type Used: Cigarettes Former Smoker, Quit: Nov 20, 2015 2nd Hand Smoke Exposure: No Recent Foreign Travel: No Contact w/Someone Who Travel: No Recent Hopitalizations: No Seasonal Allergies Seasonal Allergies: No Past Medical History Surgeries: Yes (WISDOM TEETH) Respiratory: No Cardiac: Yes Hypertension, Palpitations Neurological: No Genitourinary: No Gastrointestinal: Yes (DYSPHAGIA, WT LOSS) Musculoskeletal: No Endocrine: No HEENT: No Cancer: No Psychosocial: No Integumentary: No Blood Disorders: No Physical Exam Vital Signs Capillary Refill : Height, Weight, BMI Height: 6'1.00" Weight: 165lbs. 0.0oz. 74.169083lh; 21.8 BMI Method:Stated General Appearance: No Apparent Distress, WD/WN Eyes: Bilateral Eye Normal Inspection HEENT: Normal ENT Inspection, Other (the surface of the patient's tongue appears unremarkable on my exam) Neck: Normal Inspection Respiratory: Lungs Clear Cardiovascular: Regular Rate, Rhythm Gastrointestinal: Normal Bowel Sounds Back: Normal Inspection Extremity: Normal Inspection Neurologic/Psychiatric: Oriented x3, No Motor/Sensory Deficits Skin: Normal Color, Warm/Dry; No Rash Progress/Results/Core Measures Suspected Sepsis SIRS Temperature: Pulse: Respiratory Rate: Blood Pressure / Mean: Results/Orders My Orders Orders - LUNA NOBLE MD Albuterol Pre-Mix Nebs (Rt) (Proventil (01/16/19 13:00) Svn Small Volume Nebulizer (01/16/19 12:47) Sputum Culture (01/16/19 12:51) Chest 1 View Ap/Pa Only (01/16/19 12:52) Vital Signs/I&O Capillary Refill : Progress Note : Time: 12:58 Progress Note I am obtained a sputum for mold culture and sent the specimen to the lab. I discussed the labs recommendations with the patient's family. The patient was asked follow up closely with Dr. DWYER for the results of the mold culture. Departure Impression Primary Impression: Mold exposure Disposition: 01 HOME, SELF-CARE Condition: Unchanged Departure-Patient Inst. Decision time for Depature: 12:59 Referrals: BANG GILL MD (PCP/Family) Primary Care Physician GANESH DWYER DO Patient Instructions: Allergy to Mold Add. Discharge Instructions: Follow-up with Dr. DWYER. Return if any problems or questions. All discharge instructions reviewed with patient and/or family. Voiced understanding. LUNA NOBLE MD Jan 16, 2019 13:00
[2019-01-16 13:10] VITALS: BP 141/91
--- NOTE | 2019-01-16 13:17 | Diagnostic Imaging Report ---
EXAMINATION: Chest, one view at 12:47 a.m. INDICATION: Chest tightness. FINDINGS: The heart size is within normal limits and stable when compared to 01/07/2019. The lungs remain clear. There still no sign of failure, pneumonia, or pleural effusion. There is no pneumothorax identified either. The mediastinum is not widened. The osseous structures are intact. IMPRESSION: Stable chest. There has been no adverse change since the prior exam. Dictated by: Dictated on workstation # [id number]
--- OUTSIDE RECORDS SUMMARY | 2019-01-16 13:55 | XMS REPORT | Continuity of Care Document ---
Demographics Preferred Language Unknown Marital Status Unknown Rastafari Affiliation Unknown Race Unknown Ethnic Group Unknown Author Author 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 Ot I10 ESSENTIAL (PRIMARY) HYPERTENSION 12/17/2018 LEIGHTON [...] I10 ESSENTIAL (PRIMARY) HYPERTENSION 12/24/2018 ISAAC DO, ENHAL K Ot R00.0 TACHYCARDIA, UNSPECIFIED 12/24/2018 ISAAC DO, NEHAL K Ot Z87.891 PERSONAL HISTORY OF NICOTINE DEPENDENCE 12/26/2018 Ot R00.2 PALPITATIONS 12/26/2018 Ot R07.9 CHEST PAIN, UNSPECIFIED 12/31/2018 BANG GILL MD Ot R00.2 PALPITATIONS 12/31/2018 BANG GILL MD Ot R07.9 CHEST PAIN, UNSPECIFIED 01/07/2019 KYLE GROVER, EDDIE Bravo Ot I10 ESSENTIAL (PRIMARY) HYPERTENSION 01/07/2019 KYLE GROVER, EDDIE Bravo Ot R00.2 PALPITATIONS 01/07/2019 KYLE GROVER, EDDIE Bravo Ot R07.89 OTHER CHEST PAIN 01/07/2019 EDDIE WRIGHT MD Ot R13.10 DYSPHAGIA, UNSPECIFIED 01/07/2019 EDDIE WRIGHT MD Ot R63.4 ABNORMAL WEIGHT LOSS 01/07/2019 KYLE GROVER, EDDIE Bravo Ot Z87.891 PERSONAL HISTORY OF NICOTINE DEPENDENCE 01/10/2019 JAIRO GROVER, BANG Amaro Ot R00.2 PALPITATIONS 01/10/2019 BANG GILL MD Ot R07.9 CHEST PAIN, UNSPECIFIED 01/15/2019 JF GROVER, VAMSHI Larson Ot Z01.818 ENCOUNTER FOR OTHER PREPROCEDURAL EXAMIN Procedures There is no data. Results Test [...] Status Pt. Type Provider Facility Loc./Unit Complaint [id number] 01/30/2013 14:40:44 RECURRING [id number] 12/31/2018 18:40:00 12/31/2018 23:59:59 CLS Outpatient [facility] [id number] 2018 15:35:00 2018 18:25:00 DIS Outpatient Juan Albertopj Amber [id number] 2018 15:57:35 Document Registration [id number] 01/14/2019 09:24:00 01/14/2019 12:30:00 DIS Outpatient VAMSHI RHOADES MD [facility] ENDO WT LOSS/DYSPHAGIA [id number] 01/11/2019 10:30:00 01/11/2019 11:04:00 DIS Outpatient VAMSHI RHOADES MD [facility] PREOP EGD [id number] 01/07/2019 12:37:00 01/07/2019 15:20:00 DIS Emergency EDDIE WRIGHT MD [facility] ER CHEST PAIN [id number] 12/28/2018 09:23:00 12/28/2018 23:59:59 CLS Outpatient JAIRO GROVER, BANG Amaro [facility] CARD PALPITATIONS,CHEST PAIN [id number] 12/21/2018 21:16:00 12/21/2018 23:51:00 DIS Emergency NEHAL GRAY DO [facility] ER HEART RACING/L SIDE PAIN [id number] 12/19/2018 10:45:00 12/19/2018 23:59:59 CLS Preadmit NAVDEEP GROVER FACC, RAMAN DHILLON CCDS [facility] RAD CHEST DISCOMFORT [id number] 2018 18:51:00 2018 20:40:00 DIS Emergency LEIGHTON THOMAS APRN [facility] ER CP [id number] 12/07/2018 10:44:00 12/07/2018 14:18:00 DIS Emergency AIDE GROVER, LUNA Kincaid [facility] ER PALPITATIONS [id number] 12/07/2018 11:56:00 Document Registration
== END 2019-01-16 13:10 | disposition home or self-care (01) ==
LOC: EDUNIT# 12:04 → ER FS 12:09
DX: R10.9 Unspecified abdominal pain (principal); I10 Essential (primary) hypertension; Z87.19 Personal history of other diseases of the digestive system; Z87.891 Personal history of nicotine dependence; Z77.120 Contact with and (suspected) exposure to mold (toxic)
CPT/HCPCS: 71045; 87101; 87106

== ENCOUNTER 2019-02-19 21:07 | Emergency (ER) | payer MEDICAID ==
[~2019-02-19] VITALS: Ht 185.4 cm; Wt 74.8 kg
[~2019-02-19 21:07] MED LIST changes: +ALBUTEROL AER HFA; +ITRACONAZOLE 100 MG
--- OUTSIDE RECORDS SUMMARY | 2019-02-19 21:12 | XMS REPORT | Continuity of Care Document ---
Demographics Preferred Language Unknown Marital Status Unknown Judaism Affiliation Unknown Race Unknown Ethnic Group Unknown Author Author On License Of [facility] Address Unknown Phone Unavailable Allergies Active Description Code Type Severity Reaction Onset Reported/Identified Relationship to Patient Clinical Status Yes NO KNOWN DRUG ALLERGIES UNKNOWN NO KNOWN DRUG ALLERG Yes No Known Drug Allergies [id number] Drug Allergy Unknown N/A 12/07/2018 Medications Medication [...] Ot R07.9 CHEST PAIN, UNSPECIFIED 12/07/2018 LUNA NOBEL MD Ot Z87.891 PERSONAL HISTORY OF NICOTINE [...] HISTORY OF NICOTINE DEPENDENCE 12/17/2018 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 Ot I10 ESSENTIAL (PRIMARY) HYPERTENSION 12/17/2018 LEIGHTON [...] CHEST PAIN, UNSPECIFIED 01/07/2019 KYLE GROVER, EDDIE J Ot I10 ESSENTIAL (PRIMARY) HYPERTENSION 01/07/2019 EDDIE WRIGHT MD Ot R00.2 PALPITATIONS 01/07/2019 KYLE GROVER, EDDIE Bravo Ot R07.89 OTHER CHEST PAIN 01/07/2019 EDDIE WRIGHT MD Ot R13.10 DYSPHAGIA, UNSPECIFIED 01/07/2019 EDDIE WRIGHT MD Ot R63.4 ABNORMAL WEIGHT LOSS 01/07/2019 EDDIE WRIGHT MD Ot Z87.891 PERSONAL HISTORY OF NICOTINE DEPENDENCE 01/10/2019 JAIRO GROVER, BANG Amaro Ot R00.2 PALPITATIONS 01/10/2019 BANG GILL MD Ot R07.9 CHEST PAIN, UNSPECIFIED 01/14/2019 JF GROVER, VAMSHI Larson Ot I10 ESSENTIAL (PRIMARY) HYPERTENSION 01/14/2019 JF GROVER, VAMSHI Larson Ot K20.9 ESOPHAGITIS, UNSPECIFIED 01/14/2019 JF GROVER, VAMSHI Larson Ot K29.70 GASTRITIS, UNSPECIFIED, WITHOUT BLEEDING 01/14/2019 VAMSHI RHOADES MD Ot K29.80 DUODENITIS WITHOUT BLEEDING 01/14/2019 VAMSHI RHOADES MD Ot K31.9 DISEASE OF STOMACH AND DUODENUM, UNSPECI 01/14/2019 VAMSHI RHOADES MD Ot R00.2 PALPITATIONS 01/14/2019 VAMSHI RHOADES MD Ot Z79.899 OTHER CUSTODIAL (CURRENT) DRUG THERAPY 01/14/2019 JF GROVER, VAMSHI Larson Ot Z87.891 PERSONAL HISTORY OF NICOTINE DEPENDENCE 01/15/2019 JF GROVER, VAMSHI Larson Ot Z01.818 ENCOUNTER FOR OTHER PREPROCEDURAL EXAMIN 01/17/2019 EDDIE WRIGHT MD Ot I10 ESSENTIAL (PRIMARY) HYPERTENSION 01/17/2019 EDDIE WRIGHT MD Ot R00.2 PALPITATIONS 01/17/2019 EDDIE WRIGHT MD Ot R07.89 OTHER CHEST PAIN 01/17/2019 EDDIE WRIGHT MD Ot R13.10 DYSPHAGIA, UNSPECIFIED 01/17/2019 EDDIE WRIGHT MD Ot R63.4 ABNORMAL WEIGHT LOSS 01/17/2019 EDDIE WRIGHT MD Ot Z87.891 PERSONAL HISTORY OF NICOTINE DEPENDENCE 01/17/2019 JF GROVER, VAMSHI Larson Ot I10 ESSENTIAL (PRIMARY) HYPERTENSION 01/17/2019 JF GROVER, VAMSHI Larson Ot K20.9 ESOPHAGITIS, UNSPECIFIED 01/17/2019 JF GROVER, VAMSHI Larson Ot K29.70 GASTRITIS, UNSPECIFIED, WITHOUT BLEEDING 01/17/2019 VAMSHI RHOADES MD Ot K29.80 DUODENITIS WITHOUT BLEEDING 01/17/2019 VAMSHI RHOADES MD Ot K31.9 DISEASE OF STOMACH AND DUODENUM, UNSPECI 01/17/2019 VAMSHI RHOADES MD Ot R00.2 PALPITATIONS 01/17/2019 VAMSHI RHOADES MD Ot Z79.899 OTHER CUSTODIAL (CURRENT) DRUG THERAPY 01/17/2019 VAMSHI RHOADES MD Ot Z87.891 PERSONAL HISTORY OF NICOTINE DEPENDENCE 01/18/2019 LUNA NOBLE MD Ot I10 ESSENTIAL (PRIMARY) HYPERTENSION 01/18/2019 LUNA NOBLE MD Ot R10.9 UNSPECIFIED ABDOMINAL PAIN 01/18/2019 LUNA NOBLE MD Ot Z77.120 CONTACT WITH AND (SUSPECTED) EXPOSURE TO 01/18/2019 LUNA NOBLE MD Ot Z87.19 PERSONAL HISTORY OF OTHER DISEASES OF TH 01/18/2019 LUNA NOBLE MD Ot Z87.891 PERSONAL HISTORY OF NICOTINE DEPENDENCE 01/20/2019 VAMSHI RHOADES MD Ot I10 ESSENTIAL (PRIMARY) HYPERTENSION 01/20/2019 VAMSHI RHOADES MD Ot K20.9 ESOPHAGITIS, UNSPECIFIED 01/20/2019 JF GROVER, VAMSHI Larson Ot K29.70 GASTRITIS, UNSPECIFIED, WITHOUT BLEEDING 01/20/2019 VAMSHI RHOADES MD Ot K29.80 DUODENITIS WITHOUT BLEEDING 01/20/2019 VAMSHI RHOADES MD Ot K31.9 DISEASE OF STOMACH AND DUODENUM, UNSPECI 01/20/2019 VAMSHI RHOADES MD Ot R00.2 PALPITATIONS 01/20/2019 VAMSHI RHOADES MD Ot Z79.899 OTHER CUSTODIAL (CURRENT) DRUG THERAPY 01/20/2019 VAMSHI RHOADES MD Ot Z87.891 PERSONAL HISTORY OF NICOTINE DEPENDENCE Procedures There is no data. Results Test [...] NRG Blood erythrocyte morphology finding identification NORMAL NR PT panel in platelet poor plasma by [...] 01/07/19 12:55 BNP level < pg/mL <100.0 C FUNGUS SPUTUM FLUID TISSUE - 01/16/19 12:51 QUANTITY OF GROWTH Rare NRG FUNGUS REPORT FUNGUS GROWTH OBSERVED NRG C FUNGUS SPUTUM FLUID TISSUE [id number] NRG Encounters ACCT No. Visit Date/Time Discharge Status Pt. Type Provider Facility Loc./Unit Complaint [id number] 01/30/2013 14:40:44 RECURRING [id number] 02/18/2019 10:15:00 [facility] [id number] 2018 15:35:00 2018 18:25:00 DIS Outpatient Amber Fernandez [id number] 2018 15:57:35 Document Registration [id number] 01/16/2019 12:09:00 01/16/2019 13:10:00 DIS Outpatient AIDE GROVER, LUNA Kincaid [facility] ER FS ABD PAIN [id number] 01/14/2019 09:24:00 01/14/2019 12:30:00 DIS Outpatient VAMSHI RHOADES MD [facility] ENDO WT LOSS/DYSPHAGIA [id number] 01/11/2019 10:30:00 01/11/2019 11:04:00 DIS Outpatient VAMSHI RHOADES MD [facility] PREOP EGD [id number] 01/07/2019 12:37:00 01/07/2019 15:20:00 DIS Emergency EDDIE WRIGHT MD [facility] ER CHEST PAIN [id number] 12/28/2018 09:23:00 12/28/2018 23:59:59 CLS Outpatient JAIRO GROVER, BANG Amaro [facility] CARD PALPITATIONS,CHEST PAIN [id number] 12/21/2018 21:16:00 12/21/2018 23:51:00 DIS Emergency NEHAL GRAY DO [facility] ER HEART RACING/L SIDE PAIN [id number] 12/19/2018 10:45:00 12/19/2018 23:59:59 CLS Preadmit NAVDEEP GROVER FACCRAMAN FACP CCDS [facility] RAD CHEST DISCOMFORT [id number] 2018 18:51:00 2018 20:40:00 DIS Emergency LEIGHTON THOMAS APRN [facility] ER CP [id number] 12/07/2018 10:44:00 12/07/2018 14:18:00 DIS Emergency AIDE GROVER, LUNA Kincaid [facility] ER PALPITATIONS [id number] 02/19/2019 21:08:00 ACT Emergency JOSE GROVER, VARSHA Feliciano [facility] ER FS CHEST PAINS, SOB [id number] 12/07/2018 11:56:00 Document Registration
--- NOTE | 2019-02-19 21:58 | ED General ---
General Chief Complaint: General Problems/Pain Stated Complaint: CHEST PAINS, SOB Nursing Triage Note: LEFT SHOULDER PAIN, HURTS TO TAKE A FULL BREATH, MILD SWELLING NOTED Nursing Sepsis Screen: No Definite Risk Source of Information: Patient History of Present Illness Date Seen by Provider: Feb 19, 2019 Time Seen by Provider: 21:22 Initial Comments 23-year-old male presenting with complaints of palpitations and dizziness. He states that he's been having recurrent palpitations for several months. He also has some left-sided chest pain with palpation. He has complaints of right-sided headache this having going on today. He feels dizzy when he stands up and changes positions. He also is concerned that his symptoms may be related to exposure to black mold. He thinks that the apartment he lives in has black mold in a sewage problem. He was recently diagnosed with having a rare species of Soni when he did a sputum culture. He is taking extended release metoprolol to help with his palpitations and blood pressure, but not on a regular daily basis. he is also taking a 10 day course of the Fluconazole 200 mg a day. He is to follow up after taking a 10 day course and recheck sputum. He has had testing with Dr. Zee with cardiology out [facility] and so far all of that testing has been negative. He is also following with Dr. Gill [facility]. He had onset of symptoms with this episode tonight around supper time. He feels it is not getting better so he came to the ED to be evaluated. Allergies and Home Medications Allergies Coded Allergies: No Known Drug Allergies (Unverified , 02/20/19) Home Medications Meloxicam 7.5 Mg Tablet, 7.5 MG PO DAILY Prescribed by: VARSHA GARCIA on 02/19/19 9808 Metoprolol Succinate 100 Mg Tab.er.24h, 100 MG PO DAILY Prescribed by: EDDIE WRIGHT on 01/07/19 1505 Patient Home Medication List Home Medication List Reviewed: Yes Review of Systems Review of Systems Constitutional: No chills; dizziness; No fever EENTM: No vision loss, No epistaxis, No nose congestion Respiratory: No cough, No hemoptysis, No short of breath, No wheezing Cardiovascular: chest pain (left sided), palpitations Gastrointestinal: no symptoms reported Genitourinary: no symptoms reported Musculoskeletal: joint pain (left shoulder and shoulder blade pain) Skin: no symptoms reported Psychiatric/Neurological: Anxiety Past Hjzapyq-Aichvq-Fmfkrq Hx Past Med/Social Hx: Reviewed Nursing Past Med/Soc Hx Patient Social History Alcohol Use: Denies Use Recreational Drug Use: No Type Used: Cigarettes Former Smoker, Quit: Nov 20, 2015 2nd Hand Smoke Exposure: No Recent Foreign Travel: No Contact w/Someone Who Travel: No Recent Infectious Disease Expo: No Recent Hopitalizations: No Physical Abuse: No Sexual Abuse: No Fear: No Seasonal Allergies Seasonal Allergies: No Past Medical History Surgeries: No Respiratory: No Cardiac: Yes Hypertension, Palpitations Neurological: No Genitourinary: No Gastrointestinal: No Musculoskeletal: No (C/O LEFT SHOULDER PAIN) Endocrine: No Cancer: No Psychosocial: Yes Anxiety Integumentary: No Blood Disorders: No Physical Exam Vital Signs Vital Signs - First Documented 02/19/19 21:25 Temp 98.0 Pulse 90 Resp 20 B/P (MAP) 144/96 (112) Pulse Ox 100 Capillary Refill : Less Than 3 Seconds Height, Weight, BMI Height: 6'1.00" Weight: 165lbs. 0.0oz. 74.668011en; 21.8 BMI Method:Stated General Appearance: No Apparent Distress, WD/WN Eyes: Bilateral Eye PERRL, Bilateral Eye EOMI HEENT: PERRL/EOMI, TMs Normal, Normal ENT Inspection, Pharynx Normal Neck: Full Range of Motion, Normal Inspection, Non Tender, Supple Respiratory: Lungs Clear, Normal Breath Sounds, No Accessory Muscle Use, No Respiratory Distress, Other (tender to palpation on left anterior upper chest wall) Cardiovascular: Regular Rate, Rhythm, Normal Peripheral Pulses Gastrointestinal: Normal Bowel Sounds, No Organomegaly, No Pulsatile Mass, Non Tender, Soft Extremity: Normal Capillary Refill, Normal Inspection Neurologic/Psychiatric: Alert, Oriented x3, No Motor/Sensory Deficits, Normal Mood/Affect, mutual funds agent II-XII Norm as Tested Skin: Normal Color, Warm/Dry Progress/Results/Core Measures Suspected Sepsis Recent Fever Within 48 Hours: No Infection Criteria Present: None New/Unexplained Altered Menta: No Sepsis Screen: No Definite Risk SIRS Temperature:98.0 Pulse: 90 Respiratory Rate: 20 Laboratory Tests 02/19/19 21:55: White Blood Count 6.7 Blood Pressure 144 /96 Mean: 112 Laboratory Tests 02/19/19 21:55: Creatinine 1.05, INR Comment 1.0, Platelet Count 255, Total Bilirubin 0.6 Results/Orders Lab Results Laboratory Tests Test 02/19/19 21:55 Range/Units White Blood Count 6.7 4.3-11.0 10^3/uL Red Blood Count 5.33 4.35-5.85 10^6/uL Hemoglobin 15.0 13.3-17.7 G/DL Hematocrit 45 40-54 % Mean Corpuscular Volume 84 80-99 FL Mean Corpuscular Hemoglobin 28 25-34 PG Mean Corpuscular Hemoglobin Concent 33 32-36 G/DL Red Cell Distribution Width 13.5 10.0-14.5 % Platelet Count 255 130-400 10^3/uL Mean Platelet Volume 9.8 7.4-10.4 FL Neutrophils (%) (Auto) 30 L 42-75 % Lymphocytes (%) (Auto) 52 H 12-44 % Monocytes (%) (Auto) 12 0-12 % Eosinophils (%) (Auto) 5 0-10 % Basophils (%) (Auto) 1 0-10 % Neutrophils # (Auto) 2.0 1.8-7.8 X 10^3 Lymphocytes # (Auto) 3.5 1.0-4.0 X 10^3 Monocytes # (Auto) 0.8 0.0-1.0 X 10^3 Eosinophils # (Auto) 0.3 0.0-0.3 10^3/uL Basophils # (Auto) 0.1 0.0-0.1 10^3/uL Prothrombin Time 13.3 12.2-14.7 SEC INR Comment 1.0 0.8-1.4 Activated Partial Thromboplast Time 29 24-35 SEC Sodium Level 141 135-145 MMOL/L Potassium Level 3.5 L 3.6-5.0 MMOL/L Chloride Level 101 98-107 MMOL/L Carbon Dioxide Level 30 21-32 MMOL/L Anion Gap 10 5-14 MMOL/L Blood Urea Nitrogen 13 7-18 MG/DL Creatinine 1.05 0.60-1.30 MG/DL Estimat Glomerular Filtration Rate > 60 BUN/Creatinine Ratio 12 Glucose Level 115 H 70-105 MG/DL Calcium Level 9.2 8.5-10.1 MG/DL Corrected Calcium 8.8 8.5-10.1 MG/DL Magnesium Level 1.9 1.8-2.4 MG/DL Total Bilirubin 0.6 0.1-1.0 MG/DL Aspartate Amino Transf (AST/SGOT) 16 5-34 U/L Alanine Aminotransferase (ALT/SGPT) 11 0-55 U/L Alkaline Phosphatase 63 40-136 U/L Troponin T < 6 <=15 NG/L Pro-B-Type Natriuretic Peptide 5.0 <75.0 PG/ML Total Protein 6.8 6.4-8.2 GM/DL Albumin 4.5 3.2-4.5 GM/DL My Orders Orders - VARSHA GARCIA MD Ekg Tracing (02/19/19 21:28) Cbc With Automated Diff (02/19/19 21:52) Magnesium (02/19/19 21:52) Chest 1 View Ap/Pa Only (02/19/19 21:52) Comprehensive Metabolic Panel (02/19/19 21:52) Protime With Inr (02/19/19 21:52) Partial Thromboplastin Time (02/19/19 21:52) Monitor-Rhythm Ecg Trace Only (02/19/19 21:52) Saline Lock/Iv-Start (02/19/19 21:52) Troponin T (02/19/19 21:52) Probnp Fs (02/19/19 21:52) Ct Head Wo (02/19/19 21:52) Ns Iv 1000 Ml (Sodium Chloride 0.9%) (02/19/19 22:00) Metoprolol Tartrate Injection (Lopressor (02/19/19 22:00) Ketorolac Injection (Toradol Injection) (02/19/19 23:30) Medications Given in ED Current Medications Medications Dose Ordered Sig/Mayra Route Start Time Stop Time Status Last Admin Dose Admin Ketorolac Tromethamine 30 mg ONCE ONCE IVP 02/19/19 23:30 02/19/19 23:31 DC 02/19/19 23:39 30 MG Metoprolol Tartrate 5 mg ONCE ONCE IV 02/19/19 22:00 02/19/19 22:01 DC 02/19/19 22:46 5 MG Vital Signs/I&O 02/19/19 02/19/19 02/19/19 02/19/19 21:25 22:50 22:52 22:55 Temp 98.0 Pulse 90 75 74 66 Resp 20 20 21 20 B/P (MAP) 144/96 (112) 119/72 (88) 119/73 (88) 130/80 (97) Pulse Ox 100 99 98 02/19/19 23:46 Temp 97.0 Pulse 65 Resp 17 B/P (MAP) 126/85 (99) Pulse Ox 98 02/20/19 00:00 Intake Total 1000 ml Balance 1000 ml Capillary Refill : Less Than 3 Seconds Blood Pressure Mean: 112 Progress Note #1: Time: 21:25 Progress Note check labs and ECG with CXR. Since he is also complaining of right sided headache will also check CT head. Try an IVF bolus since he complains of dizziness with changing positions as he might be a little dry. Will also try a 5 mg dose of Metoprolol IV to boost his po dosing since he does not take it regularly. Initial ECG does not show any acute abnormality to account for his symptoms. Progress Note #2: Time: 22:30 Progress Note Labs and CT head as well as CXR are negative. His symptoms are improved with treatment here. Counseled on follow up and return precautions. advised to take the metoprolol on regular daily basis or it will not help with his heart rate and bp. also there may be an anxiety component but he did not want to start a medicine at this point. Counseled to check with PCP about this. ECG Initial ECG Impression Date: Feb 19, 2019 Initial ECG Impression Time: 21:27 Initial ECG Rate: 101 Initial ECG Rhythm: Normal Sinus Initial ECG Intervals: Normal Initial ECG Intervals Heart rate is 101 bpm. PA interval 170 ms. QT interval 340 ms with a QT corrected interval of 440 ms. Initial ECG Comparisson: Unchanged Comment He has a incomplete right bundle-branch block. He has no acute ST elevation. He has findings consistent with some LVH. Appears similar to prior tracings in the system. Diagnostic Imaging Diagonstic Imaging: Xray Plain Films/CT/US/NM/MRI: chest Comments On my review of his 1 view CXR he has No acute infiltrate or effusion Reviewed: Reviewed by Me Diagonstic Imaging: CT Plain Films/CT/US/NM/MRI: head Comments No acute intracranial abnormality per [employer] reading [facility]ed[facility] Imp[facility] Primary Impression: Heart palpitations Additional Impressions: Right-sided headache Anterior chest wall pain Disposition: 01 HOME, SELF-CARE Condition: Stable Departure-Patient Inst. Decision time for Depature: 23:01 Referrals: BANG GILL MD (PCP/Family) Primary Care Physician Patient Instructions: Headache, Adult, Chest Pain That Is Not Caused by the Heart (DC), Palpitations (DC) Add. Discharge Instructions: Check back with clinic and you may need further testing with cardiology or a longer holter or event monitor for your palpitations. Your testing tonight has been normal and not shown anything acute with your heart or head. Continue on your medicines and make sure you are drinking plenty of water and staying well hydrated. All discharge instructions reviewed with patient and/or family. Voiced understanding. Scripts Meloxicam (Meloxicam) 7.5 Mg Tablet 7.5 MG PO DAILY for pain/inflammation for 30 Days, #30 TAB 0 Refills Prov: VARSHA GARCIA MD 02/19/19 VARSHA GARCIA MD Feb 19, 2019 21:58
[2019-02-19] MEDS ORDERED: NS IV 1000 ML 1,000 ML IV SCH (22:00)
[2019-02-19] MEDS ORDERED: meTOprolol 5 MG/5 ML (LOPRESSOR) VIAL IV ONE (22:00)
[2019-02-19 22:08] LABS: BASOPHILS % (AUTO) 1 % (0-10); EOSINOPHILS % (AUTO) 5 % (0-10); HEMATOCRIT 45 % (40-54); LYMPHOCYTES # (AUTO) 3.5 X 10^3 (1.0-4.0); LYMPHOCYTES % (AUTO) 52 % (12-44); MEAN CORPUSCULAR HEMOGLOBIN 28 PG (25-34); MEAN CORPUSCULAR HGB CONC 33 G/DL (32-36); MEAN CORPUSCULAR VOLUME 84 FL (80-99); MEAN PLATELET VOLUME 9.8 FL (7.4-10.4); MONOCYTES # (AUTO) 0.8 X 10^3 (0.0-1.0); MONOCYTES % (AUTO) 12 % (0-12); NEUTROPHILS % (AUTO) 30 % (42-75); PLATELET COUNT 255 10^3/uL (130-400); RED CELL DISTRIBUTION WIDTH 13.5 % (10.0-14.5); WHITE BLOOD COUNT 6.7 10^3/uL (4.3-11.0)
[2019-02-19 22:09] LABS: BASOPHILS # (AUTO) 0.1 10^3/uL (0.0-0.1); EOSINOPHILS # (AUTO) 0.3 10^3/uL (0.0-0.3)
[2019-02-19 22:24] LABS: PROTHROMBIN TIME PATIENT 13.3 SEC (12.2-14.7)
[2019-02-19 22:43] LABS: BUN/CREATININE RATIO 12; CARBON DIOXIDE 30 MMOL/L (21-32); CHLORIDE 101 MMOL/L (98-107); CREATININE SERUM 1.05 MG/DL (0.60-1.30); GFR ESTIMATED > 60; GLUCOSE 115 MG/DL (70-105); POTASSIUM 3.5 MMOL/L (3.6-5.0); SODIUM 141 MMOL/L (135-145)
[2019-02-19 22:44] LABS: ALANINE AMINOTRANSFERASE 11 U/L (0-55); ALBUMIN 4.5 GM/DL (3.2-4.5); ALKALINE PHOSPHATASE 63 U/L (40-136); BILIRUBIN,TOTAL 0.6 MG/DL (0.1-1.0); CALCIUM 9.2 MG/DL (8.5-10.1); MAGNESIUM 1.9 MG/DL (1.8-2.4); TOTAL PROTEIN 6.8 GM/DL (6.4-8.2)
[2019-02-19 22:50] VITALS: BP 119/72
[2019-02-19 22:52] VITALS: BP 119/73
[2019-02-19 22:55] VITALS: BP 130/80
[2019-02-19] MEDS ORDERED: MELO7.5T46 PO (23:29)
[2019-02-19] MEDS ORDERED: KETOROLAC 30 MG/ML VIAL IVP ONE (23:30)
[2019-02-19 23:46] VITALS: BP 126/85
[2019-02-20] MEDS ORDERED: FLUCONAZOLE 200 MG (00:43)
--- NOTE | 2019-02-20 05:40 | Diagnostic Imaging Report ---
PROCEDURE: CT head without contrast. TECHNIQUE: Multiple contiguous axial images were obtained through the brain without the use of intravenous contrast. Auto Exposure Controls were utilized during the CT exam to meet ALARA standards for radiation dose reduction. INDICATION: Headache and weight loss. CT HEAD: Multiple contiguous axial CT images of the head were obtained. FINDINGS: Ventricles and sulci are within normal limits for size. There is no intracranial hemorrhage identified. There is no abnormal mass effect or shift of midline structures. IMPRESSION: Unremarkable CT of the head. Dictated by: Dictated on workstation # [id number]
--- NOTE | 2019-02-20 06:39 | Diagnostic Imaging Report ---
INDICATION: Left shoulder pain. Comparison with 01/16/2019. FINDINGS: Portable chest. The lungs are well-aerated without air trapping. There are no infiltrates. No pleural effusion. No pneumothorax. Heart is not enlarged. No hilar adenopathy. No bony abnormalities. IMPRESSION: Normal portable chest. Dictated by: Dictated on workstation # [id number]
== END 2019-02-19 23:46 | disposition home or self-care (01) ==
LOC: EDUNIT# 21:07 → ER FS 21:08
DX: R00.2 Palpitations (principal); R51 Headache; R07.89 Other chest pain; I10 Essential (primary) hypertension; F41.9 Anxiety disorder, unspecified; Z87.891 Personal history of nicotine dependence
CPT/HCPCS: 36415; 70450; 71045; 80053; 83735; 83880; 84484; 85025; 85610; 85730; 93005; 93041; 96374; 96375

== ENCOUNTER → 2019-03-07 | Outpatient (CLI) | payer MEDICAID ==
[~2019-03-07] MED LIST changes: +FLUCONAZOLE 200 MG; +MELO7.5T46 PO
--- NOTE | 2019-03-07 15:20 | Diagnostic Imaging Report ---
INDICATION: Difficulty swallowing. TIME OF EXAM: 3:05 PM FINDINGS: Frontal and lateral views of the soft tissues of the neck were obtained. Prevertebral soft tissues are normal. Epiglottis appears unremarkable. Airway appears to be patent. No definite foreign bodies are seen. IMPRESSION: No acute abnormality is detected. Dictated by: Dictated on workstation # [id number]
--- NOTE | 2019-03-07 15:20 | Diagnostic Imaging Report ---
INDICATION: Chest pain. TIME OF EXAM: 03:04 p.m. COMPARISON: Correlation is made with prior chest from 02/19/2019. FINDINGS: The heart size is normal. The pulmonary vascularity is unremarkable. The lungs are clear. No infiltrate, effusion or pneumothorax is detected. IMPRESSION: No acute cardiopulmonary process is detected. Dictated by: Dictated on workstation # [id number]
== END ==
LOC: RAD FS 14:39
PROVIDERS: ATTEND Family Medicine
DX: R07.82 Intercostal pain (principal); R13.10 Dysphagia, unspecified
CPT/HCPCS: 70360; 71046

== ENCOUNTER 2019-03-10 21:52 | Emergency (ER) | payer MEDICAID ==
[~2019-03-10] VITALS: Ht 185.4 cm; Wt 74.8 kg
--- OUTSIDE RECORDS SUMMARY | 2019-03-10 22:28 | XMS REPORT | Continuity of Care Document ---
Demographics Preferred Language Unknown Marital Status Unknown Advent Affiliation Unknown Race Unknown Ethnic Group Unknown Author Organization Unknown Address Unknown Allergies There is no data. Medications There is no data. Problems There is no data. Procedures There is no data. Results Test Result Range CULTURE, SPUTUM - 02/25/19 15:11 CULTURE, SPUTUM/LOWER RESPIRATORY SEE NOTE NRG Encounters ACCT No. Visit Date/Time Discharge Status Pt. Type Provider Facility Loc./Unit Complaint [id number] 01/30/2013 14:40:44 RECURRING [id number] 03/07/2019 14:15:00 03/07/2019 23:59:59 [facility] [id number] 02/25/2019 15:15:00 Document Registration
[2019-03-11] MEDS ORDERED: NS IV 1000 ML 1,000 ML IV ONE
[2019-03-11] MEDS ORDERED: CYCLOBENZAPRINE 10 MG (FLEXERIL) TAB PO STA (00:08)
--- NOTE | 2019-03-11 00:08 | ED Chest Pain ---
General Chief Complaint: Chest Pain Stated Complaint: L SIDE PAIN Nursing Triage Note: PT reports onset of chest tightness and palpitations around 2119 tonight while sitting in tub. Pt reports tightness in L shoulder and arm also. Pt states he has been evaluated for similar symptoms previously with no diagnosis. Nursing Sepsis Screen: No Definite Risk Source: patient Exam Limitations: no limitations History of Present Illness Date Seen by Provider: Mar 10, 2019 Time Seen by Provider: 23:49 Initial Comments Here with chest pain on the left side including left arm, left shoulder and left upper back and left upper chest wall. Started around 9:20 PM tonight. He was sitting in a tub soaking wet and he had the onset of pain. He tried to relax and it did not get better. He's had this intermittently over the last 5 months and multiple workups without findings. Feels like he injured something but no injuries have been noted or found. Does take meloxicam. Pain is a little better now than it was previously. Denies nausea or vomiting. Denies breathing problems. Timing/Duration: 1-3 hours Severity/Quality: moderate, aching Location: central, shoulder, back Radiation: arms (left) Activities at Onset: rest Prior CP/Workup: echocardiography Modifying Factors: improves with rest ASA po AIR TRAFFIC CONTROL SUPERVISOR: No NTG SL AIR TRAFFIC CONTROL SUPERVISOR: No Associated Symptoms: No abdominal pain; back pain; No diaphoresis, No dizziness , No edema, No fatigue, No fever/chills, No nausea/vomiting, No shortness of breath, No weakness Allergies and Home Medications Allergies Coded Allergies: No Known Drug Allergies (Unverified , 02/20/19) Home Medications Meloxicam 7.5 Mg Tablet, 7.5 MG PO DAILY Prescribed by: VARSHA GARCIA on 02/19/19 0449 Metoprolol Succinate 100 Mg Tab.er.24h, 100 MG PO DAILY Prescribed by: EDDIE WRIGHT on 01/07/19 1505 Patient Home Medication List Home Medication List Reviewed: Yes Review of Systems Review of Systems Constitutional: see HPI; No chills, No fever EENTM: No Symptoms Reported Respiratory: No Symptoms Reported Cardiovascular: See HPI, Chest Pain; Denies Edema, Denies Lightheadedness Gastrointestinal: Denies Abdominal Pain, Denies Diarrhea, Denies Nausea, Denies Vomiting Genitourinary: No Symptoms Reported Musculoskeletal: see HPI, back pain, joint pain, muscle pain, muscle stiffness Skin: no symptoms reported Psychiatric/Neurological: No Symptoms Reported All Other Systems Reviewed Negative Unless Noted: Yes Past Gkcnmwz-Aryhzi-Ligsns Hx Past Med/Social Hx: Reviewed Nursing Past Med/Soc Hx Patient Social History Alcohol Use: Denies Use Recreational Drug Use: No Smoking Status: Former Smoker Type Used: Cigarettes Former Smoker, Quit: Nov 20, 2015 2nd Hand Smoke Exposure: No Recent Foreign Travel: No Contact w/Someone Who Travel: No Recent Infectious Disease Expo: No Recent Hopitalizations: No Seasonal Allergies Seasonal Allergies: No Past Medical History Surgeries: No Respiratory: No Cardiac: Yes Hypertension, Palpitations Neurological: No Genitourinary: No Gastrointestinal: No Musculoskeletal: No (C/O LEFT SHOULDER PAIN) Endocrine: No Cancer: No Psychosocial: Yes Anxiety Integumentary: No Blood Disorders: No Family Medical History Reviewed Nursing Family Hx Physical Exam Vital Signs Vital Signs - First Documented 03/10/19 22:10 Temp 98.5 Pulse 75 Resp 18 B/P (MAP) 145/90 (108) Pulse Ox 99 O2 Delivery Room Air Capillary Refill : Less Than 3 Seconds Height, Weight, BMI Height: 6'1.00" Weight: 165lbs. 0.0oz. 74.578378vl; 21.8 BMI Method:Stated General Appearance: No Apparent Distress, WD/WN HEENT: PERRL/EOMI, Pharynx Normal Neck: Full Range of Motion, Normal Inspection, Non Tender, Supple Respiratory: Lungs Clear, Normal Breath Sounds Cardiovascular: Regular Rate, Rhythm, No Murmur Gastrointestinal: Non Tender, Soft Extremity: Swelling (pectoral muscle on left), Other (tender to touch across the left upper chest, left shoulder and left upper back.) Neurologic/Psychiatric: Alert, Oriented x3, No Motor/Sensory Deficits Skin: Normal Color, Warm/Dry Progress/Results/Core Measures Results/Orders Lab Results Laboratory Tests Test 03/10/19 22:30 Range/Units White Blood Count 6.7 4.3-11.0 10^3/uL Red Blood Count 5.63 4.35-5.85 10^6/uL Hemoglobin 15.9 13.3-17.7 G/DL Hematocrit 47 40-54 % Mean Corpuscular Volume 84 80-99 FL Mean Corpuscular Hemoglobin 28 25-34 PG Mean Corpuscular Hemoglobin Concent 34 32-36 G/DL Red Cell Distribution Width 13.9 10.0-14.5 % Platelet Count 281 130-400 10^3/uL Mean Platelet Volume 10.9 H 7.4-10.4 FL Neutrophils (%) (Auto) 25 L 42-75 % Lymphocytes (%) (Auto) 52 H 12-44 % Monocytes (%) (Auto) 17 H 0-12 % Eosinophils (%) (Auto) 6 0-10 % Basophils (%) (Auto) 1 0-10 % Neutrophils # (Auto) 1.7 L 1.8-7.8 X 10^3 Lymphocytes # (Auto) 3.5 1.0-4.0 X 10^3 Monocytes # (Auto) 1.1 H 0.0-1.0 X 10^3 Eosinophils # (Auto) 0.4 H 0.0-0.3 10^3/uL Basophils # (Auto) 0.1 0.0-0.1 10^3/uL D-Dimer < 0.27 0.00-0.49 UG/ML Sodium Level 143 135-145 MMOL/L Potassium Level 4.0 3.6-5.0 MMOL/L Chloride Level 102 98-107 MMOL/L Carbon Dioxide Level 27 21-32 MMOL/L Anion Gap 14 5-14 MMOL/L Blood Urea Nitrogen 14 7-18 MG/DL Creatinine 1.16 0.60-1.30 MG/DL Estimat Glomerular Filtration Rate > 60 BUN/Creatinine Ratio 12 Glucose Level 89 70-105 MG/DL Calcium Level 10.2 H 8.5-10.1 MG/DL Corrected Calcium 8.5-10.1 MG/DL Total Bilirubin 0.6 0.1-1.0 MG/DL Aspartate Amino Transf (AST/SGOT) 18 5-34 U/L Alanine Aminotransferase (ALT/SGPT) 17 0-55 U/L Alkaline Phosphatase 70 40-136 U/L Troponin I < 0.028 <0.028 NG/ML Total Protein 7.8 6.4-8.2 GM/DL Albumin 4.9 H 3.2-4.5 GM/DL My Orders Orders - SHAHANA RITCHIE MD Cbc With Automated Diff (03/11/19 00:00) Comprehensive Metabolic Panel (03/11/19 00:00) Fibrin Degradation Products (03/11/19 00:00) Troponin I (03/11/19 00:00) Ed Iv/Invasive Line Start (03/11/19 00:00) Ns Iv 1000 Ml (Sodium Chloride 0.9%) (03/11/19 00:00) Chest 1 View, Ap/Pa Only (03/11/19 00:00) Cyclobenzaprine Tablet (Flexeril Tablet) (03/11/19 00:08) Ct Chest W (03/11/19 00:32) Medications Given in ED Current Medications Medications Dose Ordered Sig/Mayra Route Start Time Stop Time Status Last Admin Dose Admin Sodium Chloride 1,000 ml @ 0 mls/hr Q0M ONCE IV 03/11/19 00:00 03/11/19 00:03 DC 03/11/19 00:10 0 MLS/HR Vital Signs/I&O 03/10/19 03/10/19 22:10 22:10 Temp 98.5 Pulse 75 Resp 18 B/P (MAP) 145/90 (108) Pulse Ox 99 O2 Delivery Room Air Room Air Blood Pressure Mean: 108 Progress Progress Note : Progress Note Seen and evaluated. IV, labs, EKG, chest x-ray ordered. We will give Flexeril 10 mg by mouth for the muscle strain. He has declined stronger pain medicine. EKG reviewed and compared to previous and shows similar. Consider CT of the chest pending labs. 0220: CT, x-ray and labs are all negative. Patient states that he feels a little bit better. He will follow back up with his doctor. Discharged home with return precautions. Patient verbalize understanding instructions and agreement with plan. Initial ECG Impression Date: Mar 10, 2019 Initial ECG Impression Time: 22:03 Initial ECG Rate: 68 Initial ECG Rhythm: Normal Sinus Comment Sinus rhythm with left axis deviation. Left ventricular hypertrophy. Question ST elevation in the V1 through V5 segments but overall similar to 02/19/19. No evidence of ST elevation MT. Interpreted by me. Diagnostic Imaging Diagonstic Imaging: Xray Plain Films/CT/US/NM/MRI: chest Comments No acute findings Diagonstic Imaging: CT Plain Films/CT/US/NM/MRI: chest Comments Negative CT chest Reviewed: Reviewed [facility] Study Departure Impression Primary Impression: Chest pain Qualified Codes: R07.9 - Chest pain, unspecified Disposition: HOME, SELF-CARE Condition: Improved Departure-Patient Inst. Decision time for Depature: 02:30 Referrals: BANG GILL MD (PCP/Family) Primary Care Physician Patient Instructions: Chest Pain (DC) Add. Discharge Instructions: All discharge instructions reviewed with patient and/or family. Voiced understanding. Follow-up with your primary care provider earlier this week for recheck and further evaluation. Return for worse pain, fever, vomiting, weakness, breathing problems or other concerns as needed. Continue home medications as previously prescribed. Copy Copies To 1: BANG GILL MD, TIMOTHY D MD Mar 11, 2019 00:08
[2019-03-11 00:12] LABS: BASOPHILS # (AUTO) 0.1 10^3/uL (0.0-0.1); BASOPHILS % (AUTO) 1 % (0-10); EOSINOPHILS # (AUTO) 0.4 10^3/uL (0.0-0.3); EOSINOPHILS % (AUTO) 6 % (0-10); HEMATOCRIT 47 % (40-54); HEMOGLOBIN 15.9 G/DL (13.3-17.7); LYMPHOCYTES # (AUTO) 3.5 X 10^3 (1.0-4.0); LYMPHOCYTES % (AUTO) 52 % (12-44); MEAN CORPUSCULAR HEMOGLOBIN 28 PG (25-34); MEAN CORPUSCULAR HGB CONC 34 G/DL (32-36); MEAN CORPUSCULAR VOLUME 84 FL (80-99); MEAN PLATELET VOLUME 10.9 FL (7.4-10.4); MONOCYTES # (AUTO) 1.1 X 10^3 (0.0-1.0); MONOCYTES % (AUTO) 17 % (0-12); NEUTROPHILS # (AUTO) 1.7 X 10^3 (1.8-7.8); NEUTROPHILS % (AUTO) 25 % (42-75); PLATELET COUNT 281 10^3/uL (130-400); RED CELL DISTRIBUTION WIDTH 13.9 % (10.0-14.5); WHITE BLOOD COUNT 6.7 10^3/uL (4.3-11.0)
[2019-03-11 00:25] LABS: ALANINE AMINOTRANSFERASE 17 U/L (0-55); ALBUMIN 4.9 GM/DL (3.2-4.5); ALKALINE PHOSPHATASE 70 U/L (40-136); BILIRUBIN,TOTAL 0.6 MG/DL (0.1-1.0); BUN/CREATININE RATIO 12; CALCIUM 10.2 MG/DL (8.5-10.1); CARBON DIOXIDE 27 MMOL/L (21-32); CHLORIDE 102 MMOL/L (98-107); CREATININE SERUM 1.16 MG/DL (0.60-1.30); GFR ESTIMATED > 60; GLUCOSE 89 MG/DL (70-105); SODIUM 143 MMOL/L (135-145); TOTAL PROTEIN 7.8 GM/DL (6.4-8.2)
[2019-03-11 02:38] VITALS: BP 119/71
--- NOTE | 2019-03-11 05:34 | Diagnostic Imaging Report ---
INDICATION: Chest pain. COMPARISON: 03/07/2019 FINDINGS: Single frontal view of the chest demonstrates normal heart size and pulmonary vascularity. The lungs are well aerated and clear. No large pleural effusion or pneumothorax is seen. The visualized osseous structures show no acute abnormalities. IMPRESSION: 1. No acute cardiopulmonary process. Dictated by: Dictated on workstation # [id number]
--- NOTE | 2019-03-11 06:40 | Diagnostic Imaging Report ---
PROCEDURE: CT chest with contrast only. TECHNIQUE: Multiple contiguous axial images were obtained through the chest after administration of intravenous contrast. Auto Exposure Controls were utilized during the CT exam to meet ALARA standards for radiation dose reduction. INDICATION: Chest pain. COMPARISON: Chest radiograph from earlier same day. FINDINGS: There is mild image degradation of the pulmonary parenchyma secondary to motion artifact. Despite this, no suspicious pulmonary nodules or masses are identified. There is no focal consolidation, large effusion, nor pneumothorax. Cardiomediastinal structures show normal heart size. There is no large pericardial effusion. No abnormal mesenteric or retroperitoneal adenopathy is seen. There is small amount of soft tissue density within the anterior superior mediastinum, which is felt to be on basis of residual thymic tissue. Osseous structures show no acute abnormalities. No lytic or blastic bony lesions are seen. Included portions of the upper abdomen are unremarkable. IMPRESSION: 1. No acute abnormalities within the chest. Dictated by: Dictated on workstation # [id number]
== END 2019-03-11 02:38 | disposition home or self-care (01) ==
LOC: EDUNIT# 21:52 → ER 21:53
DX: R07.9 Chest pain, unspecified (principal); I10 Essential (primary) hypertension; F41.9 Anxiety disorder, unspecified; Z87.891 Personal history of nicotine dependence
CPT/HCPCS: 36415; 71045; 71260; 80053; 84484; 85025; 85379; 93005

== ENCOUNTER → 2019-04-02 | Outpatient (CLI) | payer MEDICAID | LOC: CARD 09:36 | PROVIDERS: ATTEND Nurse Practitioner Family | DX: R07.89 Other chest pain (principal); M25.512 Pain in left shoulder | CPT/HCPCS: 93351 ==

== ENCOUNTER 2019-04-12 17:48 | Emergency (ER) | payer MEDICAID ==
[~2019-04-12] VITALS: Ht 185.4 cm; Wt 75.3 kg
--- OUTSIDE RECORDS SUMMARY | 2019-04-12 17:52 | XMS REPORT | Continuity of Care Document ---
[...] Status Pt. Type Provider Facility Loc./Unit Complaint [id number] 01/30/2013 14:40:44 [facility] [id number] 03/07/2019 14:15:00 03/07/2019 23:59:59 [facility] [id number] 02/25/2019 15:15:00 Document Registration
[2019-04-12 18:23] LABS: BASOPHILS % (AUTO) 1 % (0-10); EOSINOPHILS # (AUTO) 0.4 10^3/uL (0.0-0.3); EOSINOPHILS % (AUTO) 6 % (0-10); HEMATOCRIT 45 % (40-54); HEMOGLOBIN 15.6 G/DL (13.3-17.7); LYMPHOCYTES # (AUTO) 3.3 X 10^3 (1.0-4.0); LYMPHOCYTES % (AUTO) 47 % (12-44); MEAN CORPUSCULAR HEMOGLOBIN 29 PG (25-34); MEAN CORPUSCULAR HGB CONC 35 G/DL (32-36); MEAN CORPUSCULAR VOLUME 82 FL (80-99); MEAN PLATELET VOLUME 9.7 FL (7.4-10.4); MONOCYTES # (AUTO) 0.9 X 10^3 (0.0-1.0); MONOCYTES % (AUTO) 13 % (0-12); NEUTROPHILS # (AUTO) 2.3 X 10^3 (1.8-7.8); NEUTROPHILS % (AUTO) 33 % (42-75); PLATELET COUNT 271 10^3/uL (130-400); RED CELL DISTRIBUTION WIDTH 13.4 % (10.0-14.5)
[2019-04-12 18:42] LABS: ALANINE AMINOTRANSFERASE 18 U/L (0-55); ALBUMIN 4.6 GM/DL (3.2-4.5); ALKALINE PHOSPHATASE 62 U/L (40-136); BILIRUBIN,TOTAL 0.6 MG/DL (0.1-1.0); BUN/CREATININE RATIO 13; CALCIUM 9.7 MG/DL (8.5-10.1); CARBON DIOXIDE 29 MMOL/L (21-32); CHLORIDE 102 MMOL/L (98-107); CREATININE SERUM 1.16 MG/DL (0.60-1.30); GFR ESTIMATED > 60; GLUCOSE 87 MG/DL (70-105); POTASSIUM 3.8 MMOL/L (3.6-5.0); SODIUM 139 MMOL/L (135-145); TOTAL PROTEIN 7.2 GM/DL (6.4-8.2)
[2019-04-12] MEDS ORDERED: CYCLOBENZAPRINE 10 MG (FLEXERIL) TAB PO STA (18:48)
--- NOTE | 2019-04-12 18:51 | ED Cardiac General ---
History of Present Illness General Chief Complaint: Chest Pain Stated Complaint: CP Nursing Triage Note: PATIENT STATES THAT HE HAS BEEN HAVING MORE CHEST PAIN TODAY. IT IS REPRODUCABLE WHEN I PALPATE. IT ALSO HURTS WHEN HE MOVES HIS LEFT SHOULDER. HE ALSO COMPLAINS OF A BAD TASTE IN HIS MOUTH, SWEATING, FACIAL TIGHTNESS AND ITCHING. History of Present Illness Date Seen by Provider: April 12, 2019 Time Seen by Provider: 18:30 Initial Comments 23 year old -Iranian male presents for left anterior chest pain palpable, feeling that his body is "hot", bad taste in his mouth, tonsillar debris and left shoulder pain. He has had an extensive previous cardiac workup which has been negative. He states his pain has been present since September and has been unchanged. No new symptoms today. He has an appointment next week with orthopedics in [place]. Timing/Duration: constant Location: shoulder (last) NTG SL PEST CONTROL CHEMICAL TECHNICIAN: No ASA po PEST CONTROL CHEMICAL TECHNICIAN: No Associated Systoms: Chest Pain; No Cough, No Loss of Appetite, No Malaise, No Nausea/Vomiting, No Rash, No Shortness of Air, No Syncope Allergies and Home Medications Allergies Coded Allergies: No Known Drug Allergies (Unverified , 02/20/19) Home Medications Cyclobenzaprine HCl 10 Mg Tablet, 10 MG PO Q8H PRN for SPASMS Prescribed by: LINA GARCIA on 04/12/19 193 Meloxicam 7.5 Mg Tablet, 7.5 MG PO DAILY Prescribed by: VARSHA GARCIA on 02/19/19 2329 Metoprolol Succinate 100 Mg Tab.er.24h, 100 MG PO DAILY Prescribed by: EDDIE WRIGHT on 01/07/19 1505 Patient Home Medication List Home Medication List Reviewed: Yes Review of Systems Review of Systems Constitutional: no symptoms reported, see HPI Cardiovascular: See HPI, Chest Pain (left anterior), Palpitations Musculoskeletal: see HPI, joint pain (left shoulder) All Other Systems Reviewed Negative Unless Noted: Yes Past Akuippe-Zsngap-Zujhss Hx Past Med/Social Hx: Reviewed Nursing Past Med/Soc Hx Patient Social History Type Used: Cigarettes Former Smoker, Quit: Nov 20, 2015 2nd Hand Smoke Exposure: No Recent Foreign Travel: No Contact w/Someone Who Travel: No Recent Infectious Disease Expo: No Recent Hopitalizations: No Seasonal Allergies Seasonal Allergies: No Past Medical History Surgeries: No Respiratory: No Cardiac: Yes Hypertension, Palpitations Neurological: No Genitourinary: No Gastrointestinal: No Musculoskeletal: No (C/O LEFT SHOULDER PAIN) Endocrine: No Cancer: No Psychosocial: Yes Anxiety Integumentary: No Blood Disorders: No Physical Exam Vital Signs Vital Signs - First Documented 04/12/19 17:54 Temp 98.1 Pulse 71 Resp 18 B/P (MAP) 144/86 (105) Pulse Ox 99 Capillary Refill : Less Than 3 Seconds Height, Weight, BMI Height: 6'1.00" Weight: 166lbs. 0oz. 75.926148pk; 21.8 BMI Method:Stated General Appearance: No Apparent Distress, WD/WN HEENT: PERRL/EOMI, TMs Normal, Normal ENT Inspection, Pharynx Normal (cryptic tonsils noted, no tonsillar debris noted) Neck: Full Range of Motion, Normal Inspection, Non Tender, Supple Respiratory: Lungs Clear, Normal Breath Sounds, Other (tenderness to palpation anterior chest wall, no swelling, crepitus or ecchymosis noted.) Cardiovascular: Regular Rate, Rhythm, No Edema, No Murmur, Normal Peripheral Pulses Gastrointestinal: Normal Bowel Sounds, Non Tender, Soft Extremity: Normal Capillary Refill, Normal Inspection, No Pedal Edema, Other (left shoulder full passive range of motion, decreased active range of motion. Radial and ulnar pulses 2+ bilateral upper extremities, left hand cool to touch compared to right, capillary refill less than 2 seconds bilateral upper extremities) Neurologic/Psychiatric: Alert, Oriented x3, No Motor/Sensory Deficits, Normal Mood/Affect Skin: Normal Color, Warm/Dry Progress/Results/Core Measures Results/Orders Lab Results Laboratory Tests Test 04/12/19 18:15 Range/Units White Blood Count 7.0 4.3-11.0 10^3/uL Red Blood Count 5.43 4.35-5.85 10^6/uL Hemoglobin 15.6 13.3-17.7 G/DL Hematocrit 45 40-54 % Mean Corpuscular Volume 82 80-99 FL Mean Corpuscular Hemoglobin 29 25-34 PG Mean Corpuscular Hemoglobin Concent 35 32-36 G/DL Red Cell Distribution Width 13.4 10.0-14.5 % Platelet Count 271 130-400 10^3/uL Mean Platelet Volume 9.7 7.4-10.4 FL Neutrophils (%) (Auto) 33 L 42-75 % Lymphocytes (%) (Auto) 47 H 12-44 % Monocytes (%) (Auto) 13 H 0-12 % Eosinophils (%) (Auto) 6 0-10 % Basophils (%) (Auto) 1 0-10 % Neutrophils # (Auto) 2.3 1.8-7.8 X 10^3 Lymphocytes # (Auto) 3.3 1.0-4.0 X 10^3 Monocytes # (Auto) 0.9 0.0-1.0 X 10^3 Eosinophils # (Auto) 0.4 H 0.0-0.3 10^3/uL Basophils # (Auto) 0.0 0.0-0.1 10^3/uL Sodium Level 139 135-145 MMOL/L Potassium Level 3.8 3.6-5.0 MMOL/L Chloride Level 102 98-107 MMOL/L Carbon Dioxide Level 29 21-32 MMOL/L Anion Gap 8 5-14 MMOL/L Blood Urea Nitrogen 15 7-18 MG/DL Creatinine 1.16 0.60-1.30 MG/DL Estimat Glomerular Filtration Rate > 60 BUN/Creatinine Ratio 13 Glucose Level 87 70-105 MG/DL Calcium Level 9.7 8.5-10.1 MG/DL Corrected Calcium 8.5-10.1 MG/DL Total Bilirubin 0.6 0.1-1.0 MG/DL Aspartate Amino Transf (AST/SGOT) 23 5-34 U/L Alanine Aminotransferase (ALT/SGPT) 18 0-55 U/L Alkaline Phosphatase 62 40-136 U/L Troponin I < 0.028 <0.028 NG/ML Total Protein 7.2 6.4-8.2 GM/DL Albumin 4.6 H 3.2-4.5 GM/DL My Orders Orders - LINA GARCIA Cbc With Automated Diff (04/12/19 18:14) Comprehensive Metabolic Panel (04/12/19 18:14) Troponin I (04/12/19 18:14) Ekg Tracing (04/12/19 18:14) Cyclobenzaprine Tablet (Flexeril Tablet) (04/12/19 18:48) Tramadol Tablet (Ultram Tablet) (04/12/19 19:00) Medications Given in ED Current Medications Medications Dose Ordered Sig/Mayra Route Start Time Stop Time Status Last Admin Dose Admin Tramadol HCl 50 mg ONCE ONCE PO 04/12/19 19:00 04/12/19 19:01 DC 04/12/19 18:55 50 MG Vital Signs/I&O 04/12/19 04/12/19 17:54 19:34 Temp 98.1 98.1 Pulse 71 71 Resp 18 18 B/P (MAP) 144/86 (105) 144/86 (105) Pulse Ox 99 99 Blood Pressure Mean: 105 Progress Progress Note : Time: 18:30 Progress Note Patient seen and evaluated, will obtain labs, EKG. Discussed at length with the patient these are persistent symptoms. He has not followed up with his primary care provider. Reviewed his previous echo, EKGs, diagnostic studies, and Holter. 1929 we'll give tramadol 50 mg and cyclobenzaprine 10 mg for discomfort. 2014 patient reports minimal improvement in his symptoms. Encouraged that he follow up with orthopedics and consider a diagnosis of thoracic outlet syndrome versus costochondritis. Discharge instructions and return precautions reviewed with him. Departure Impression Primary Impression: Costochondritis Additional Impression: Pain, dental Disposition: HOME, SELF-CARE Condition: Improved Departure-Patient Inst. Decision time for Depature: 19:15 Referrals: BANG GILL MD (PCP/Family) Primary Care Physician Patient Instructions: Costochondritis (DC), Dental Pain (DC) Add. Discharge Instructions: Continue to take home medication as prescribed. May alternate between ibuprofen 600 mg and Tylenol 650 mg every 4 hours. Alternate between heat and ice to your left rib pain. Salt water gargles and Orajel for dental pain. Scheduled for an appointment with a dentist. Keep your scheduled appointment with orthopedics for this week. See Dr. Gill on he for continued symptoms. Return to the emergency department for acute, urgent health care needs. All discharge instructions reviewed with patient and/or family. Voiced understanding. Scripts Cyclobenzaprine HCl (Cyclobenzaprine HCl) 10 Mg Tablet 10 MG PO Q8H PRN for SPASMS, #15 TAB 0 Refills Prov: LINA GARCIA 04/12/19 LINA GARCIA April 12, 2019 18:51
[2019-04-12] MEDS ORDERED: CYCL10TA9 PO (19:32)
[2019-04-12 19:34] VITALS: BP 144/86
== END 2019-04-12 19:43 | disposition home or self-care (01) ==
LOC: EDUNIT# 17:48 → ER 17:48
DX: M94.0 Chondrocostal junction syndrome [Tietze] (principal); K08.89 Other specified disorders of teeth and supporting structures; I10 Essential (primary) hypertension; F41.9 Anxiety disorder, unspecified; Z87.891 Personal history of nicotine dependence
CPT/HCPCS: 36415; 80053; 84484; 85025; 93005

== ENCOUNTER → 2019-05-22 | Outpatient (CLI) | payer MEDICAID ==
[~2019-05-22] MED LIST changes: +CYCL10TA9 PO
== END ==
LOC: RT 12:51
PROVIDERS: ATTEND Nurse Practitioner Family
DX: J30.2 Other seasonal allergic rhinitis (principal); G47.10 Hypersomnia, unspecified

== ENCOUNTER 2019-06-17 20:10 | Outpatient (CLI) | payer MEDICAID | END 2019-06-18 06:52 | disposition home or self-care (01) | LOC: SLEEP 20:10 | PROVIDERS: ATTEND Nurse Practitioner Family | DX: J30.2 Other seasonal allergic rhinitis (principal); G47.10 Hypersomnia, unspecified | CPT/HCPCS: 95810 ==

== ENCOUNTER → 2019-07-04 | Outpatient (CLI) | payer MEDICAID ==
[2019-07-04 12:43] LABS: ABG BASE EXCESS 3.5 MMOL/L (-2.5-2.5); ABG OXYGEN SATURATION 93 % (94-100); ABG PCO2 46 MMHG (35-45); ABG PO2 61 MMHG (79-93); ABG TCO2 29.5 MMOL/L (21.0-31.0)
[2019-07-04 12:44] LABS: ALLENS TEST YES-POS; INSPIRED O2 ROOM AIR; VENTILATOR NO
== END ==
LOC: RT 12:08
PROVIDERS: ATTEND Internal Medicine Critical Care Medicine
DX: R06.00 Dyspnea, unspecified (principal)
CPT/HCPCS: 36600; 82805

== ENCOUNTER 2019-08-05 11:39 | Emergency (ER) | payer MEDICAID ==
[~2019-08-05] VITALS: Ht 182.8 cm; Wt 78.2 kg
[2019-08-05] MEDS ORDERED: HOLD METFORMIN - RECEIVED CONTRAST 20 ML VIAL IV SCH (12:15)
[2019-08-05] MEDS ORDERED: CATHETER FLUSH 10 ML SYR IV PRN (12:15)
[2019-08-05] MEDS ORDERED: IOHEXOL 350 MG/ML 100 ML (OMNIPAQUE 350) VIAL IV ONE (12:15)
[2019-08-05] MEDS ORDERED: NS 100 ML (IVPB) BAG IV ONE (12:15)
[2019-08-05] MEDS ORDERED: NS IV 1000 ML 1,000 ML IV SCH (12:15)
--- NOTE | 2019-08-05 12:52 | Diagnostic Imaging Report ---
PROCEDURE: CT abdomen and pelvis with contrast. TECHNIQUE: Multiple contiguous axial images were obtained through the abdomen and pelvis after administration of intravenous contrast. Auto Exposure Controls were utilized during the CT exam to meet ALARA standards for radiation dose reduction. INDICATION: Left-sided abdominal pain and left flank pain. COMPARISON: No prior studies are available for comparison. FINDINGS: The lung bases are clear. The liver and gallbladder are unremarkable. No biliary ductal dilatation is seen. The pancreas and spleen are unremarkable. No adrenal mass is seen. The kidneys are unremarkable. No calculi are seen. There is no hydronephrosis. The small and large bowel loops are of normal caliber. No obstruction is identified. The appendix is visualized in the right lower quadrant and appears unremarkable. No free fluid or loculated fluid collection is identified. The bladder is unremarkable. No inflammatory changes are seen. The bony structures are unremarkable. IMPRESSION: Unremarkable CT of the abdomen and pelvis. No acute feature is detected. Dictated by: Dictated on workstation # [id number]
[2019-08-05] MEDS ORDERED: ANTACID SUSP 30 ML UDC (MYLANTA) PO ONE (13:00)
[2019-08-05] MEDS ORDERED: ONDANSETRON 4 MG/2 ML (SDV) Z0FRAN IVP ONE (13:00)
[2019-08-05] MEDS ORDERED: fentaNYL INJECTION 100 MCG/2 ML AMP IVP ONE (13:00)
[2019-08-05] MEDS ORDERED: LIDOCAINE 2% VISCOUS 15 ML UDC PO ONE (13:00)
[2019-08-05] MEDS ORDERED: PANTOPRAZOLE 40 MG (PROTONIX) VIAL IV ONE (13:00)
[2019-08-05] MEDS ORDERED: OMEP20TA33 PO (13:06)
[2019-08-05] MEDS ORDERED: ONDA4TAB11 PO (13:06)
[2019-08-05] MEDS ORDERED: HYDR-4226 PO (13:06)
--- NOTE | 2019-08-05 13:06 | ED General ---
General Chief Complaint: Abdominal/GI Problems Stated Complaint: LT ABD PAIN; DIARRHEA; VOMITING Nursing Triage Note: Patient reports nausea, vomiting, diarrhea, and LLQ, LUQ abdominal pain since 0800 this morning. He reports vomiting and having diarrheal stools 5 times today. Nursing Sepsis Screen: No Definite Risk History of Present Illness Date Seen by Provider: Aug 05, 2019 Time Seen by Provider: 13:01 Initial Comments Patient presenting to emergency department for evaluation of left-sided abdominal pain that started earlier this morning and has persisted and worsened. Says it is a sharp burning pain primarily the left upper quadrant and epigastrium associated with several episodes of nonbloody nonbilious emesis. He says that the pain radiates towards his back but there is no associated testicular pain fevers chills diarrhea constipation dysuria hematuria. He denies any prior abdominal surgeries. He appears uncomfortable but is nontoxic with normal vital signs. Allergies and Home Medications Allergies Coded Allergies: No Known Drug Allergies (Unverified , 02/20/19) Home Medications Cyclobenzaprine HCl 10 Mg Tablet, 10 MG PO Q8H PRN for SPASMS Prescribed by: LINA GARCIA on 04/12/19 193 Hydrocodone/Acetaminophen 1 Each Tablet, 1 TAB PO Qhs Prescribed by: MADELIN JAY on 08/05/19 1306 Meloxicam 7.5 Mg Tablet, 7.5 MG PO DAILY Prescribed by: VARSHA GARCIA on 02/19/19 2329 Metoprolol Succinate 100 Mg Tab.er.24h, 100 MG PO DAILY Prescribed by: EDDIE WRIGHT on 01/07/19 1505 Omeprazole Magnesium 20 Mg Tablet.dr, 20 MG PO DAILY Prescribed by: MADELIN JAY on 08/05/19 1306 Ondansetron 4 Mg Tab.rapdis, 4 MG PO Q6H Prescribed by: MADELIN JAY on 08/05/19 1306 Patient Home Medication List Home Medication List Reviewed: Yes Review of Systems Review of Systems Constitutional: no symptoms reported EENTM: no symptoms reported Respiratory: no symptoms reported Cardiovascular: no symptoms reported Gastrointestinal: abdominal pain, nausea, vomiting Genitourinary: no symptoms reported Musculoskeletal: back pain Skin: no symptoms reported Psychiatric/Neurological: No Symptoms Reported All Other Systems Reviewed Negative Unless Noted: Yes Past Atllote-Jxebgx-Xnjjvx Hx Patient Social History Type Used: Cigarettes Former Smoker, Quit: Nov 20, 2015 2nd Hand Smoke Exposure: No Recent Foreign Travel: No Contact w/Someone Who Travel: No Recent Infectious Disease Expo: No Recent Hopitalizations: No Seasonal Allergies Seasonal Allergies: No Past Medical History Surgeries: No Respiratory: No Cardiac: Yes Hypertension, Palpitations Neurological: No Genitourinary: No Gastrointestinal: No Musculoskeletal: No (C/O LEFT SHOULDER PAIN) Endocrine: No Cancer: No Psychosocial: Yes Anxiety Integumentary: No Blood Disorders: No Physical Exam Vital Signs Vital Signs - First Documented 08/05/19 11:45 Temp 36.6 Pulse 79 Resp 20 B/P (MAP) 125/74 (91) Pulse Ox 99 O2 Delivery Room Air Capillary Refill : Less Than 3 Seconds Height, Weight, BMI Height: 6'1.00" Weight: 166lbs. 0oz. 75.264159nj; 23.00 BMI Method:Stated General Appearance: No Apparent Distress, WD/WN HEENT: PERRL/EOMI Neck: Supple Respiratory: Lungs Clear, No Respiratory Distress Cardiovascular: Regular Rate, Rhythm Gastrointestinal: Soft, Tenderness (tenderness to palpation in epigastrium and left upper quadrant with no rebound or guarding) Back: Normal Inspection Extremity: Normal Capillary Refill Neurologic/Psychiatric: Alert, Oriented x3 Skin: Warm/Dry Progress/Results/Core Measures Suspected Sepsis Recent Fever Within 48 Hours: No Infection Criteria Present: None New/Unexplained Altered Menta: No Sepsis Screen: No Definite Risk SIRS Temperature: Pulse: 79 Respiratory Rate: 20 Laboratory Tests 08/05/19 12:20: White Blood Count 11.8H Blood Pressure 125 /74 Mean: 91 Laboratory Tests 08/05/19 12:20: Creatinine 1.15, Platelet Count 253, Total Bilirubin 0.8 Results/Orders Lab Results Laboratory Tests Test 08/05/19 12:20 08/05/19 13:32 Range/Units White Blood Count 11.8 H 4.3-11.0 10^3/uL Red Blood Count 6.03 H 4.35-5.85 10^6/uL Hemoglobin 17.1 13.3-17.7 G/DL Hematocrit 52 40-54 % Mean Corpuscular Volume 86 80-99 FL Mean Corpuscular Hemoglobin 28 25-34 PG Mean Corpuscular Hemoglobin Concent 33 32-36 G/DL Red Cell Distribution Width 12.8 10.0-14.5 % Platelet Count 253 130-400 10^3/uL Mean Platelet Volume 10.1 7.4-10.4 FL Neutrophils (%) (Auto) 82 H 42-75 % Lymphocytes (%) (Auto) 8 L 12-44 % Monocytes (%) (Auto) 9 0-12 % Eosinophils (%) (Auto) 1 0-10 % Basophils (%) (Auto) 0 0-10 % Neutrophils # (Auto) 9.7 H 1.8-7.8 X 10^3 Lymphocytes # (Auto) 0.9 L 1.0-4.0 X 10^3 Monocytes # (Auto) 1.1 H 0.0-1.0 X 10^3 Eosinophils # (Auto) 0.2 0.0-0.3 10^3/uL Basophils # (Auto) 0.0 0.0-0.1 10^3/uL Sodium Level 140 135-145 MMOL/L Potassium Level 4.5 3.6-5.0 MMOL/L Chloride Level 99 98-107 MMOL/L Carbon Dioxide Level 27 21-32 MMOL/L Anion Gap 14 5-14 MMOL/L Blood Urea Nitrogen 15 7-18 MG/DL Creatinine 1.15 0.60-1.30 MG/DL Estimat Glomerular Filtration Rate > 60 BUN/Creatinine Ratio 13 Glucose Level 96 70-105 MG/DL Calcium Level 10.0 8.5-10.1 MG/DL Corrected Calcium 8.5-10.1 MG/DL Total Bilirubin 0.8 0.1-1.0 MG/DL Aspartate Amino Transf (AST/SGOT) 16 5-34 U/L Alanine Aminotransferase (ALT/SGPT) 11 0-55 U/L Alkaline Phosphatase 70 40-136 U/L Total Protein 7.8 6.4-8.2 GM/DL Albumin 4.8 H 3.2-4.5 GM/DL Lipase 26 8-78 U/L Urine Color YELLOW Urine Clarity CLEAR Urine pH 8.0 5-9 Urine Specific [place] 1.010 L 1.016-1.022 Urine Protein NEGATIVE NEGATIVE Urine Glucose (UA) NEGATIVE NEGATIVE Urine Ketones NEGATIVE NEGATIVE Urine Nitrite NEGATIVE NEGATIVE Urine Bilirubin NEGATIVE NEGATIVE Urine Urobilinogen 0.2 NORMAL MG/DL Urine Leukocyte Esterase NEGATIVE NEGATIVE Urine RBC (Auto) NEGATIVE NEGATIVE Urine RBC NONE /HPF Urine WBC NONE /HPF Urine Squamous Epithelial Cells RARE /HPF Urine Crystals NONE /LPF Urine Bacteria NEGATIVE /HPF Urine Casts NONE /LPF Urine Mucus NEGATIVE /LPF Urine Culture Indicated NO My Orders Orders - MADELIN JAY DO Cbc With Automated Diff (08/05/19 12:02) Comprehensive Metabolic Panel (08/05/19 12:02) Lipase (08/05/19 12:02) Ua Culture If Indicated (08/05/19 12:02) Ct Abdomen/Pelvis W (08/05/19 12:02) Ns Iv 1000 Ml (Sodium Chloride 0.9%) (08/05/19 12:15) Iohexol Injection (Omnipaque 350 Mg/Ml 1 (08/05/19 12:15) Received Contrast (Hold Metformin- Contr (08/05/19 12:15) Sodium Chloride Flush (Catheter Flush Sy (08/05/19 12:15) Ns (Ivpb) (Sodium Chloride 0.9% Ivpb Bag (08/05/19 12:15) Fentanyl Injection (Sublimaze Injection (08/05/19 13:00) Ondansetron Injection (Zofran Injectio (08/05/19 13:00) Antacid Suspension (Mylanta Suspension (08/05/19 13:00) Lidocaine 2% Viscous 15 Ml (Xylocaine Vi (08/05/19 13:00) Pantoprazole Injection (Protonix Injecti (08/05/19 13:00) Manual Differential (08/05/19 12:20) Diphenhydramine Injection (Benadryl Inje (08/05/19 13:45) Medications Given in ED Current Medications Medications Dose Ordered Sig/Mayra Route Start Time Stop Time Status Last Admin Dose Admin Al Hydrox/Mg Hydrox/Simethicone 30 ml ONCE ONCE PO 08/05/19 13:00 08/05/19 13:02 DC 08/05/19 13:22 30 ML Diphenhydramine HCl 50 mg ONCE ONCE IVP 08/05/19 13:45 08/05/19 13:46 DC 08/05/19 13:44 50 MG Fentanyl Citrate 50 mcg ONCE ONCE IVP 08/05/19 13:00 08/05/19 13:02 DC 08/05/19 13:22 50 MCG Iohexol 100 ml ONCE ONCE IV 08/05/19 12:15 08/05/19 12:16 DC 08/05/19 12:35 100 ML Lidocaine HCl 5 ml ONCE ONCE PO 08/05/19 13:00 08/05/19 13:02 DC 08/05/19 13:22 5 ML Ondansetron HCl 4 mg ONCE ONCE IVP 08/05/19 13:00 08/05/19 13:02 DC 08/05/19 13:21 4 MG Pantoprazole 40 mg ONCE ONCE IV 08/05/19 13:00 08/05/19 13:02 DC 08/05/19 13:22 40 MG Sodium Chloride 10 ml NEEDED PRN IV 08/05/19 12:15 08/05/19 12:35 10 ML Sodium Chloride 100 ml ONCE ONCE IV 08/05/19 12:15 08/05/19 12:16 DC 08/05/19 12:35 100 ML Vital Signs/I&O 08/05/19 11:45 Temp 36.6 Pulse 79 Resp 20 B/P (MAP) 125/74 (91) Pulse Ox 99 O2 Delivery Room Air Capillary Refill : Less Than 3 Seconds Blood Pressure Mean: 91 Progress Note : Progress Note Patient was refusing anything for pain initially however his pain persisted so I went ahead and gave him fentanyl Zofran pantoprazole GI cocktail. Patient's pain improved significantly and he was able to tolerate fluids with no difficulty. Given he appears well with normal vital signs benign initial and repeat abdominal exam and his workup is rather benign he'll be discharged in stable condition with instructions to start Prilosec rest her GI tract and follow primary care provider within 2-3 days to ensure improvement. Patient was told to come back to emergency department sooner with worsening pain fevers vomiting or other general concerns. Patient aware and agreeable with plan for discharge and verbalized understanding of the above instructions. Departure Impression Primary Impression: Abdominal pain Additional Impression: Nausea and vomiting Disposition: 01 HOME, SELF-CARE Condition: Stable Departure-Patient Inst. Referrals: BANG GILL MD (PCP/Family) Primary Care Physician Patient Instructions: Acute Abdomen (Belly Pain), Adult (DC) Scripts Hydrocodone/Acetaminophen ([place] 5-325 Tablet) 1 Each Tablet 1 TAB PO Qhs for Pain MDD 10 TABS for 5 Days, #5 TAB Prov: MADELIN JAY DO 08/05/19 Ondansetron (Ondansetron Odt) 4 Mg Tab.rapdis 4 MG PO Q6H, #10 TAB Prov: MADELIN JAY DO 08/05/19 Omeprazole Magnesium (Prilosec Otc) 20 Mg Tablet. 20 MG PO DAILY, #30 TAB Prov: MADELIN JAY DO 08/05/19 MADELIN JAY DO Aug 05, 2019 13:06
[2019-08-05 13:15] LABS: HEMATOCRIT 52 % (40-54); HEMOGLOBIN 17.1 G/DL (13.3-17.7); MEAN CORPUSCULAR HEMOGLOBIN 28 PG (25-34); MEAN CORPUSCULAR HGB CONC 33 G/DL (32-36); MEAN CORPUSCULAR VOLUME 86 FL (80-99); MEAN PLATELET VOLUME 10.1 FL (7.4-10.4); PLATELET COUNT 253 10^3/uL (130-400); RED CELL DISTRIBUTION WIDTH 12.8 % (10.0-14.5); WHITE BLOOD COUNT 11.8 10^3/uL (4.3-11.0)
[2019-08-05 13:16] LABS: BASOPHILS % (AUTO) 0 % (0-10); EOSINOPHILS # (AUTO) 0.2 10^3/uL (0.0-0.3); EOSINOPHILS % (AUTO) 1 % (0-10); LYMPHOCYTES # (AUTO) 0.9 X 10^3 (1.0-4.0); LYMPHOCYTES % (AUTO) 8 % (12-44); MONOCYTES # (AUTO) 1.1 X 10^3 (0.0-1.0); MONOCYTES % (AUTO) 9 % (0-12); NEUTROPHILS # (AUTO) 9.7 X 10^3 (1.8-7.8); NEUTROPHILS % (AUTO) 82 % (42-75)
[2019-08-05 13:25] LABS: ALANINE AMINOTRANSFERASE 11 U/L (0-55); ALBUMIN 4.8 GM/DL (3.2-4.5); ALKALINE PHOSPHATASE 70 U/L (40-136); BILIRUBIN,TOTAL 0.8 MG/DL (0.1-1.0); BUN/CREATININE RATIO 13; CARBON DIOXIDE 27 MMOL/L (21-32); CHLORIDE 99 MMOL/L (98-107); CREATININE SERUM 1.15 MG/DL (0.60-1.30); GFR ESTIMATED > 60; GLUCOSE 96 MG/DL (70-105); LIPASE 26 U/L (8-78); POTASSIUM 4.5 MMOL/L (3.6-5.0); SODIUM 140 MMOL/L (135-145); TOTAL PROTEIN 7.8 GM/DL (6.4-8.2)
[2019-08-05] MEDS ORDERED: diphenhydrAMINE 50 MG/ML INJ (BENADRYL) IVP ONE (13:45)
[2019-08-05 13:59] LABS: BACTERIA,URINE NEGATIVE /HPF; BILIRUBIN,URINE NEGATIVE (NEGATIVE); CLARITY,URINE CLEAR; COLOR,URINE YELLOW; GLUCOSE, URINE (UA) NEGATIVE (NEGATIVE); KETONES,URINE NEGATIVE (NEGATIVE); LEUKOCYTE ESTERASE ,URINE NEGATIVE (NEGATIVE); NITRITE,URINE NEGATIVE (NEGATIVE); PROTEIN,URINE NEGATIVE (NEGATIVE); SQUAMOUS EPITHELIAL CELL,UR RARE /HPF; UROBILINOGEN,URINE 0.2 MG/DL (NORMAL)
[2019-08-05 14:30] VITALS: BP 128/64
[2019-08-05 14:51] LABS: BAND NEUTROPHILS 11 %; EOSINOPHILS % (MANUAL) 3 %; LYMPHOCYTES % (MANUAL) 8 %; MONOCYTES % (MANUAL) 11 %; NEUTROPHILS % (MANUAL) 67 %; RBC MORPH NORMAL
== END 2019-08-05 14:30 | disposition home or self-care (01) ==
LOC: EDUNIT# 11:39 → ER FS 11:40
DX: R10.32 Left lower quadrant pain (principal); R11.2 Nausea with vomiting, unspecified; I10 Essential (primary) hypertension; F41.9 Anxiety disorder, unspecified; Z87.891 Personal history of nicotine dependence
CPT/HCPCS: 36415; 74177; 80053; 81000; 83690; 85007; 85027; 96361; 96374; 96375

== ENCOUNTER 2020-07-16 14:14 | Emergency (ER) | payer MEDICAID ==
[~2020-07-16] VITALS: Ht 182.9 cm; Wt 92.0 kg
[~2020-07-16 14:14] MED LIST changes: +HYDR-4226 PO; -METO-395 PO; +MTP100TCR PO; +OMEP20TA33 PO; +ONDA4TAB11 PO
[2020-07-16] MEDS ORDERED: morphine INJ 10 MG/ML 1ML (SYR OR VIAL) IVP STA (14:33)
--- NOTE | 2020-07-16 14:41 | ED GI ---
General Stated Complaint: FEVER; PHLEGM; RT FLANK PAIN Source of Information: Patient Exam Limitations: No Limitations History of Present Illness Date Seen by Provider: Jul 16, 2020 Time Seen by Provider: 14:26 Initial Comments The patient is a pleasant 24-year-old male presents for evaluation of fever which started this morning as well as right flank discomfort and right lower quadrant abdominal pain. He reports decreased appetite. He went to urgent care first and was told to come to the emergency department. He says he first noticed some right flank discomfort and took a hot bath last night which did not seem to make much of a difference and then when he woke up today he noticed the fever and reported that the pain had radiated somewhat to the right lower abdomen. He denies any surgical history. He has not eaten anything today. He takes metoprolol for hypertension but denies any other prescribed medications. He is alert and oriented 4, calm, and appears to be in no distress at this time. He denies vomiting, diarrhea, rectal bleeding, cough, shortness of breath, chest pain, sore throat, headache, neck pain or stiffness, rash, urinary complaints, dizziness or syncope. Timing/Duration: 12-24 Hours Severity/Quality: Moderate Location: RLQ, Flank (right) Radiation: RLQ (right flank to right lower quad) Activities at Onset: None Associated Symptoms: Fever/Chills Allergies and Home Medications Allergies Coded Allergies: No Known Drug Allergies (Unverified , 02/20/19) Home Medications Cyclobenzaprine HCl 10 Mg Tablet, 10 MG PO Q8H PRN for SPASMS Prescribed by: LINA GARCIA on 04/12/19 193 Hydrocodone/Acetaminophen 1 Each Tablet, 1 TAB PO Qhs Prescribed by: MADELIN JAY on 08/05/19 1306 Meloxicam 7.5 Mg Tablet, 7.5 MG PO DAILY Prescribed by: VARSHA GARCIA on 02/19/19 2329 Metoprolol Succinate 100 Mg Tab.er.24h, 100 MG PO DAILY Prescribed by: EDDIE WRIGHT on 01/07/19 1505 Omeprazole Magnesium 20 Mg Tablet.dr, 20 MG PO DAILY Prescribed by: MADELIN JAY on 08/05/19 1306 Ondansetron 4 Mg Tab.rapdis, 4 MG PO Q6H Prescribed by: MADELIN JAY on 08/05/19 1306 Patient Home Medication List Home Medication List Reviewed: Yes Review of Systems Review of Systems Constitutional: fever, other (decreased appetite) EENTM: No Symptoms Reported Respiratory: No Symptoms Reported Cardiovascular: No Symptoms Reported Gastrointestinal: Abdominal Pain (RLQ) Genitourinary: No Symptoms Reported Musculoskeletal: back pain (right flank) Skin: no symptoms reported Psychiatric/Neurological: No Symptoms Reported Endocrine: No Symptoms Reported Hematologic/Lymphatic: No Symptoms Reported All Other Systems Reviewed Negative Unless Noted: Yes Past Uszspkf-Mvdoyy-Kdbgkp Hx Past Med/Social Hx: Reviewed Nursing Past Med/Soc Hx Patient Social History Type Used: Cigarettes Former Smoker, Quit: Nov 20, 2015 2nd Hand Smoke Exposure: No Recent Foreign Travel: No Contact w/Someone Who Travel: No Recent Hopitalizations: No Seasonal Allergies Seasonal Allergies: No Past Medical History Surgeries: No Respiratory: No Cardiac: Yes Hypertension, Palpitations Neurological: No Genitourinary: No Gastrointestinal: No Musculoskeletal: No (C/O LEFT SHOULDER PAIN) Endocrine: No Cancer: No Psychosocial: Yes Anxiety Integumentary: No Blood Disorders: No Physical Exam Vital Signs Vital Signs - First Documented 07/16/20 14:35 Temp 38.0 Pulse 86 Resp 16 B/P (MAP) 135/74 (94) Pulse Ox 96 O2 Delivery Room Air Capillary Refill : Height/Weight/BMI Height: 6'1.00" Weight: 166lbs. 0oz. 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4-10.4 FL Neutrophils (%) (Auto) 49 42-75 % Lymphocytes (%) (Auto) 25 12-44 % Monocytes (%) (Auto) 24 H 0-12 % Eosinophils (%) (Auto) 1 0-10 % Basophils (%) (Auto) 1 0-10 % Neutrophils # (Auto) 2.5 1.8-7.8 X 10^3 Lymphocytes # (Auto) 1.3 1.0-4.0 X 10^3 Monocytes # (Auto) 1.2 H 0.0-1.0 X 10^3 Eosinophils # (Auto) 0.1 0.0-0.3 10^3/uL Basophils # (Auto) 0.0 0.0-0.1 10^3/uL Neutrophils % (Manual) 46 % Lymphocytes % (Manual) 20 % Monocytes % (Manual) 23 % Eosinophils % (Manual) 1 % Basophils % (Manual) 0 % Band Neutrophils 7 % Atypical Lymphocytes 3 % Blood Morphology Comment NORMAL Sodium Level 139 135-145 MMOL/L Potassium Level 3.8 3.6-5.0 MMOL/L Chloride Level 102 98-107 MMOL/L Carbon Dioxide Level 24 21-32 MMOL/L Anion Gap 13 5-14 MMOL/L Blood Urea Nitrogen 11 7-18 MG/DL Creatinine 1.35 H 0.60-1.30 MG/DL Estimat Glomerular Filtration Rate > 60 BUN/Creatinine Ratio 8 Glucose Level 87 70-105 MG/DL Calcium Level 9.2 8.5-10.1 MG/DL Corrected Calcium 8.9 8.5-10.1 MG/DL Total Bilirubin 0.6 0.1-1.0 MG/DL Aspartate Amino Transf (AST/SGOT) 25 5-34 U/L Alanine Aminotransferase (ALT/SGPT) 20 0-55 U/L Alkaline Phosphatase 87 40-136 U/L Total Protein 7.2 6.4-8.2 GM/DL Albumin 4.4 3.2-4.5 GM/DL Lipase 21 8-78 U/L Urine Color YELLOW Urine Clarity CLEAR Urine pH 6.0 5-9 Urine Specific [place] 1.010 L 1.016-1.022 Urine Protein NEGATIVE NEGATIVE Urine Glucose (UA) NEGATIVE NEGATIVE Urine Ketones 1+ H NEGATIVE Urine Nitrite NEGATIVE NEGATIVE Urine Bilirubin NEGATIVE NEGATIVE Urine Urobilinogen 0.2 < = 1.0 MG/DL Urine Leukocyte Esterase NEGATIVE NEGATIVE Urine RBC (Auto) NEGATIVE NEGATIVE Urine RBC NONE /HPF Urine WBC NONE /HPF Urine Squamous Epithelial Cells 0-2 /HPF Urine Crystals NONE /LPF Urine Bacteria NONE /HPF Urine Casts NONE /LPF Urine Mucus SMALL H /LPF Urine Culture Indicated NO My Orders Orders - OZZIE SHAW DO Cbc With Automated Diff (07/16/20 14:33) Comprehensive Metabolic Panel (07/16/20 14:33) Lipase (07/16/20 14:33) Ua Culture If Indicated (07/16/20 14:33) Ed Iv/Invasive Line Start (07/16/20 14:33) Nothing By Mouth (07/16/20 Lunch) Ns Iv 1000 Ml (Sodium Chloride 0.9%) (07/16/20 14:45) Morphine Injection (Morphine Injection (07/16/20 14:33) Ondansetron Injection (Zofran Injectio (07/16/20 14:45) Ct Abdomen/Pelvis W (07/16/20 14:33) Iohexol Injection (Omnipaque 350 Mg/Ml 1 (07/16/20 14:45) Received Contrast (Hold Metformin- Contr (07/16/20 14:45) Sodium Chloride Flush (Catheter Flush Sy (07/16/20 14:45) Ns (Ivpb) (Sodium Chloride 0.9% Ivpb Bag (07/16/20 14:45) Manual Differential (07/16/20 14:48) Ns Iv 1000 Ml (Sodium Chloride 0.9%) (07/16/20 15:45) Coronavirus Sars-Cov-2 So 2018 (07/16/20 15:35) Medications Given in ED Current Medications Medications Dose Ordered Sig/Mayra Route Start Time Stop Time Status Last Admin Dose Admin Iohexol 100 ml ONCE ONCE IV 07/16/20 14:45 07/16/20 14:46 DC 07/16/20 15:08 100 ML Ondansetron HCl 4 mg ONCE ONCE IVP 07/16/20 14:45 07/16/20 14:46 DC 07/16/20 14:48 4 MG Sodium Chloride 10 ml NEEDED PRN IV 07/16/20 14:45 07/16/20 15:08 10 ML Sodium Chloride 100 ml ONCE ONCE IV 07/16/20 14:45 07/16/20 14:46 DC 07/16/20 15:08 100 ML Vital Signs/I&O 07/16/20 14:35 Temp 38.0 Pulse 86 Resp 16 B/P (MAP) 135/74 (94) Pulse Ox 96 O2 Delivery Room Air Progress Progress Note : Progress Note @1605 - patient updated on lab and imaging results which are acutely unremarkable. There is a suggestion of some dehydration and the patient received 2 L of IV fluids. Advised the patient to follow up with his PCP in the next 2-3 days and to return to the emergency Department immediately for new or worsening symptoms. Inform the patient that he was tested for COVID today and to self-quarantine stay away from others until he knows results which may take a few days. Diagnostic Imaging Diagonstic Imaging: CT Comments [facility] [place], [place] NAME: [facility] REC#: [id number] PT STATUS: REG ER : 1995 PHYSICIAN: OZZIE SHAW DO ADMIT DATE: 07/16/20/ER FS Signed Date of Exam:07/16/20 CT ABDOMEN/PELVIS W CT ABDOMEN/PELVIS W PROCEDURE: CT abdomen and pelvis with contrast. TECHNIQUE: Multiple contiguous axial images were obtained through the abdomen and pelvis after administration of intravenous contrast. INDICATION: Right flank and right lower quadrant abdominal pain COMPARISON: 08/05/2019 FINDINGS: LOWER THORAX: Lung bases are clear. Visualized heart is normal in size. DIAPHRAGM: Unremarkable. LIVER: Normal. GALLBLADDER: Normal CT appearance. BILE DUCTS: No biliary ductal dilatation. SPLEEN: Normal. PANCREAS: Normal. No pancreatic ductal dilatation. ADRENAL GLANDS: No nodules. RIGHT KIDNEY AND URETER: No hydronephrosis. Normal renal enhancement. No suspicious mass. LEFT KIDNEY AND URETER: No hydronephrosis. Normal renal enhancement. No suspicious mass. STOMACH AND BOWEL: Stomach is physiologically-distended. No bowel obstruction. No inflammatory changes. APPENDIX: Normal. PELVIC ORGANS/BLADDER: Bladder is normal. PERITONEUM AND RETROPERITONEUM: No pneumoperitoneum or loculated fluid collection. No omental or mesenteric mass. LYMPH NODES: No lymphadenopathy. VESSELS: Abdominal aorta is nonaneurysmal. No venous thrombosis. ABDOMINAL WALL: Unremarkable. BONES: No acute abnormality. IMPRESSION: No acute abnormality. Dictated by: Dictated on workstation # [id number] Dict: 07/16/20 1527 Trans: 07/16/20 1529 [id number] Interpreted by: BELINDA COON MD Electronically signed by: BELINDA COON MD 07/16/20 1529 Departure Impression Primary Impression: Dehydration Additional Impressions: Right lower quadrant abdominal pain Fever Flu-like symptoms Disposition: HOME, SELF-CARE Condition: Stable Departure-Patient Inst. Decision time for Depature: 15:57 Referrals: BANG GILL MD (PCP/Family) Primary Care Physician Patient Instructions: Dehydration, Adult (DC), Viral Syndrome (DC), Severe Abdominal Pain, Adult (DC) Add. Discharge Instructions: You were tested for COVID today and the results may take a few days to come back. Stay away from others and self quarantine until you know the results. Take Tylenol for fevers as needed. Drink plenty of water to stay well hydrated. Follow-up with your doctor in the next 2-3 days and return to the emergency Department immediately for new or worsening symptoms such as difficult breathing. OZZIE SHAW DO Jul 16, 2020 14:41
[2020-07-16] MEDS ORDERED: ONDANSETRON 4 MG/2 ML (SDV) Z0FRAN IVP ONE (14:45)
[2020-07-16] MEDS ORDERED: HOLD METFORMIN - RECEIVED CONTRAST 20 ML VIAL IV SCH (14:45)
[2020-07-16] MEDS ORDERED: CATHETER FLUSH 10 ML SYR IV PRN (14:45)
[2020-07-16] MEDS ORDERED: IOHEXOL 350 MG/ML 100 ML (OMNIPAQUE 350) VIAL IV ONE (14:45)
[2020-07-16] MEDS ORDERED: NS 100 ML (IVPB) BAG IV ONE (14:45)
[2020-07-16] MEDS ORDERED: NS IV 1000 ML 1,000 ML IV SCH ×2 (14:45→15:45)
[2020-07-16 15:01] LABS: HEMATOCRIT 46 % (40-54); MEAN CORPUSCULAR HEMOGLOBIN 30 PG (25-34); MEAN CORPUSCULAR HGB CONC 35 G/DL (32-36); MEAN CORPUSCULAR VOLUME 86 FL (80-99); PLATELET COUNT 209 10^3/uL (130-400); RED CELL DISTRIBUTION WIDTH 12.8 % (10.0-14.5); WHITE BLOOD COUNT 5.1 10^3/uL (4.3-11.0)
[2020-07-16 15:02] LABS: BASOPHILS % (AUTO) 1 % (0-10); EOSINOPHILS # (AUTO) 0.1 10^3/uL (0.0-0.3); EOSINOPHILS % (AUTO) 1 % (0-10); LYMPHOCYTES # (AUTO) 1.3 X 10^3 (1.0-4.0); LYMPHOCYTES % (AUTO) 25 % (12-44); MEAN PLATELET VOLUME 10.3 FL (7.4-10.4); MONOCYTES # (AUTO) 1.2 X 10^3 (0.0-1.0); MONOCYTES % (AUTO) 24 % (0-12); NEUTROPHILS # (AUTO) 2.5 X 10^3 (1.8-7.8); NEUTROPHILS % (AUTO) 49 % (42-75)
[2020-07-16 15:19] LABS: CHLORIDE 102 MMOL/L (98-107); POTASSIUM 3.8 MMOL/L (3.6-5.0); SODIUM 139 MMOL/L (135-145)
[2020-07-16 15:20] LABS: ALANINE AMINOTRANSFERASE 20 U/L (0-55); ALBUMIN 4.4 GM/DL (3.2-4.5); ALKALINE PHOSPHATASE 87 U/L (40-136); BILIRUBIN,TOTAL 0.6 MG/DL (0.1-1.0); BUN/CREATININE RATIO 8; CALCIUM 9.2 MG/DL (8.5-10.1); CARBON DIOXIDE 24 MMOL/L (21-32); CREATININE SERUM 1.35 MG/DL (0.60-1.30); GFR ESTIMATED > 60; GLUCOSE 87 MG/DL (70-105); LIPASE 21 U/L (8-78); TOTAL PROTEIN 7.2 GM/DL (6.4-8.2)
[2020-07-16 15:26] LABS: ATYPICAL LYMPHOCYTES 3 %; BAND NEUTROPHILS 7 %; BASOPHILS % (MANUAL) 0 %; EOSINOPHILS % (MANUAL) 1 %; LYMPHOCYTES % (MANUAL) 20 %; NEUTROPHILS % (MANUAL) 46 %; RBC MORPH NORMAL
[2020-07-16 15:27] LABS: MONOCYTES % (MANUAL) 23 %
--- NOTE | 2020-07-16 15:30 | Diagnostic Imaging Report ---
CT ABDOMEN/PELVIS W PROCEDURE: CT abdomen and pelvis with contrast. TECHNIQUE: Multiple contiguous axial images were obtained through the abdomen and pelvis after administration of intravenous contrast. INDICATION: Right flank and right lower quadrant abdominal pain COMPARISON: 08/05/2019 FINDINGS: LOWER THORAX: Lung bases are clear. Visualized heart is normal in size. DIAPHRAGM: Unremarkable. LIVER: Normal. GALLBLADDER: Normal CT appearance. BILE DUCTS: No biliary ductal dilatation. SPLEEN: Normal. PANCREAS: Normal. No pancreatic ductal dilatation. ADRENAL GLANDS: No nodules. RIGHT KIDNEY AND URETER: No hydronephrosis. Normal renal enhancement. No suspicious mass. LEFT KIDNEY AND URETER: No hydronephrosis. Normal renal enhancement. No suspicious mass. STOMACH AND BOWEL: Stomach is physiologically-distended. No bowel obstruction. No inflammatory changes. APPENDIX: Normal. PELVIC ORGANS/BLADDER: Bladder is normal. PERITONEUM AND RETROPERITONEUM: No pneumoperitoneum or loculated fluid collection. No omental or mesenteric mass. LYMPH NODES: No lymphadenopathy. VESSELS: Abdominal aorta is nonaneurysmal. No venous thrombosis. ABDOMINAL WALL: Unremarkable. BONES: No acute abnormality. IMPRESSION: No acute abnormality. Dictated by: Dictated on workstation # [id number]
[2020-07-16 15:54] LABS: BILIRUBIN,URINE NEGATIVE (NEGATIVE); CLARITY,URINE CLEAR; COLOR,URINE YELLOW; GLUCOSE, URINE (UA) NEGATIVE (NEGATIVE); KETONES,URINE 1+ (NEGATIVE); LEUKOCYTE ESTERASE ,URINE NEGATIVE (NEGATIVE); NITRITE,URINE NEGATIVE (NEGATIVE); PROTEIN,URINE NEGATIVE (NEGATIVE); SQUAMOUS EPITHELIAL CELL,UR 0-2 /HPF
[2020-07-16] MEDS ORDERED: ACETAMINOPHEN 500 MG TAB (TYLENOL) PO ONE (16:00)
[2020-07-16 16:28] VITALS: BP 138/82
== END 2020-07-16 16:28 | disposition home or self-care (01) ==
LOC: EDUNIT# 14:14 → ER FS 14:16
DX: U07.1 COVID-19 (principal); E86.0 Dehydration; R10.31 Right lower quadrant pain; I10 Essential (primary) hypertension; Z87.891 Personal history of nicotine dependence
CPT/HCPCS: 36415; 74177; 80053; 81000; 83690; 85007; 85027; 99284; U0002; 87635

== ENCOUNTER 2022-09-30 19:47 | Emergency (ER) | payer MEDICAID ==
[~2022-09-30] VITALS: Ht 182.8 cm; Wt 94.0 kg
[~2022-09-30 19:47] MED LIST changes: +CYCL10TA25 PO; -CYCL10TA9 PO
[2022-09-30 19:51] VITALS: BP 156/103
[2022-09-30] MEDS ORDERED: AMOXICILLIN 500 MG (POLYMOX) CAP PO STA (19:59)
--- NOTE | 2022-09-30 19:59 | ED EENT ---
History of Present Illness General Chief Complaint: Dental Problems/Pain Stated Complaint: TOOTH PAIN History of Present Illness Date Seen by Provider: Sep 30, 2022 Time Seen by Provider: 19:57 Initial Comments 26-year-old male presents with dental pain in his left lower teeth. Patient reports he has been dealing with it on and off for about a year. That recently was infected and just drain some purulent material. That he is having some pain with it after it drained. He denies any fevers chills nausea or vomiting. Allergies and Home Medications Allergies Coded Allergies: No Known Drug Allergies (Unverified , 02/20/19) Patient Home Medication List Home Medication List Reviewed: Yes Cyclobenzaprine HCl (Cyclobenzaprine HCl) 10 Mg Tablet, 10 MG PO Q8H PRN for SPASMS Prescribed by: LINA GARCIA on 04/12/19 193 Hydrocodone/Acetaminophen (Hydrocodone/Acetaminophen 5 MG/325 MG TAB) 1 Each Tablet, 1 TAB PO Qhs Prescribed by: MADELIN JAY on 08/05/19 1306 Meloxicam (Meloxicam) 7.5 Mg Tablet, 7.5 MG PO DAILY Prescribed by: VARSHA GARCIA on 02/19/19 2329 Metoprolol Succinate (Metoprolol Succinate) 100 Mg Tab.er.24h, 100 MG PO DAILY Prescribed by: EDDIE WRIGHT on 01/07/19 1505 Omeprazole Magnesium (Prilosec Otc) 20 Mg Tablet.dr, 20 MG PO DAILY Prescribed by: MADELIN JAY on 08/05/19 1306 Ondansetron (Ondansetron Odt) 4 Mg Tab.rapdis, 4 MG PO Q6H Prescribed by: MADELIN JAY on 08/05/19 1306 [Fluconazole 200MG Tablets] , (Reported) Entered as Reported by: MAN SANDERSON on 02/20/19 0043 Review of Systems Review of Systems Constitutional: no symptoms reported, diaphoresis Eyes: No Symptoms Reported Ears: No Symptoms Reported Nose: no symptoms reported Mouth: see HPI Throat: no symptoms reported Respiratory: no symptoms reported Cardiovascular: no symptoms reported Gastrointestinal: no symptoms reported Musculoskeletal: no symptoms reported Past Idfxors-Tdfkjf-Miyqxl Hx Seasonal Allergies Seasonal Allergies: No Past Medical History Surgeries: No Respiratory: No Cardiac: Yes Hypertension, Palpitations Neurological: No Genitourinary: No Gastrointestinal: No Musculoskeletal: No (C/O LEFT SHOULDER PAIN) Endocrine: No Cancer: No Psychosocial: Yes Anxiety Integumentary: No Blood Disorders: No Physical Exam Height, Weight, BMI Height: 6'1.00" Weight: 166lbs. 0oz. [id number]; 27.00 BMI Method:Stated General Appearance: WD/WN, no apparent distress Eyes: bilateral eye normal inspection Mouth/Throat: other (Dental carry at left lower, mild gum swelling, no abscess noted) Neck: non-tender, supple Cardiovascular: normal peripheral pulses, regular rate, rhythm Respiratory: lungs clear, normal breath sounds Neurologic/Psychiatric: alert, normal mood/affect, oriented x 3 Skin: normal color, warm/dry Progress/Results/Core Measures Results/Orders My Orders Orders - BRIDGET OBRIEN DO Amoxicillin Capsule (Polymox Capsule) (09/30/22 19:59) Progress Progress Note : Progress Note Patient with severe dental carry and dental infection. We will start him on amoxicillin. Discussed with him the need to follow-up with a dentist as soon as possible, recommended he try a temporary filling. Patient stable discharged home Departure Impression Primary Impression: Dental caries Additional Impression: Infected dental caries Disposition: HOME, SELF-CARE Condition: Stable Departure-Patient Inst. Referrals: CHAI DWYER DO (PCP/Family) Primary Care Physician Patient Instructions: Dental Pain (DC), Dental Pain Add. Discharge Instructions: [facility]. Please brush very well and use Listerine or similar mouthwash prior to placing feeling. Follow-up with dentist soon as possible All discharge instructions reviewed with patient and/or family. Voiced understanding. BRIDGET OBRIEN DO Sep 30, 2022 19:59
== END 2022-09-30 20:13 | disposition home or self-care (01) ==
LOC: EDUNIT# 19:47 → ER FS 19:48
DX: K02.9 Dental caries, unspecified (principal); K04.7 Periapical abscess without sinus; Z28.310 Unvaccinated for COVID-19
CPT/HCPCS: 99283